=== PATIENT | female | born 2000 ===

== ENCOUNTER 2023-04-15 05:07 | Emergency (ER) | payer OTHER, SELFPAY ==
[2023-04-15 05:19] VITALS: BP 114/80; PULSE 104; RESP 18; TEMP 36.6; O2SAT 97; BMI 38.4
--- NOTE | 2023-04-15 05:32 | ED.ALCOHOL ---
HPI - Alcohol General Chief Complaint: ETOH/Substance Use Stated Complaint: CRISIS,HEARING VOICES,ETOH USE PER EMS Time Seen by Provider: 04/15/23 05:28 Source: patient Mode of arrival: EMS Limitations: other (Aggressive behavior) History of Present Illness HPI narrative: 22-year-old male (female gender at ) who presents emergency department for evaluation of acute alcohol intoxication. According to nursing notes, the patient was intoxicated and was walking in the middle the street. The patient flagged down a police car and requested a ride home. Given his alcohol intoxication, he was brought to emergency department for evaluation. Almost immediately on arrival the patient became extremely aggressive, he was yelling at staff. He was using inappropriate language. He stated that he did not want any treatment any did not want any help. The patient did denies being suicidal or homicidal. He did admit to drinking alcohol and was able to understand the consequences of refusing care despite being intoxicated. The patient became extremely agitated and was fixated on one are security guards and used very threatening language as well as racially charge language. Related Data Allergies Allergy/AdvReac Type Severity Reaction Status Date / Time No Known Allergies Allergy Verified 04/15/23 05:19 Review of Systems Review of Systems: Yes all other systems are reviewed and are negative [facility] Social History Social History Advance Directives: No Advance Directives Information Provided: No Physical Exam ED Vital Signs: Vital Signs - 24 hr 04/15/23 05:19 Temperature 97.8 F Pulse Rate 104 H Respiratory Rate 18 Blood Pressure 114/80 Pulse Oximetry 97 Oxygen Delivery Method Room Air BMI result Body Mass Index 38.4 Vital signs were normal General: The patient was extremely aggressive, he was yelling, he was threatening staff with violence if we did not let him go, he also was fixated on 1 security systems installer and used very racially charge language when talking to this security systems installer. HEENT: Head is normal cephalic and atraumatic Neck: Supple Lungs: No respiratory distress Neuro: Patient is agitated, moves all extremities symmetrically, he has no difficulty walking Medical Decision Making Medical Decision Making MDM Narrative: 22-year-old male who presents emergency department for evaluation of acute alcohol intoxication. The patient denied suicidal or homicidal ideation. The patient to appear to be intoxicated however the patient was oriented to person and place and was competent understand the consequences of his actions despite being intoxicated, therefore the patient was discharged from the emergency department. I did tell the patient if he changed his mind, if he wanted help with his alcohol use disorder any other issues that he should return to the emergency department for re-evaluation Differential Diagnosis Differential diagnosis includes was not limited to alcohol intoxication, substance use disorder Discharge Plan Discharge Clinical Impression: Alcoholic intoxication, Aggressive behavior Patient Disposition: Home, Self-Care Additional Instructions: If you feel like you are going to hurt yourself or hurt anyone else, please call 911 and return to the emergency depart Continue taking medications as prescribed by your providers Follow-up with your doctor in 2 days. Please return to the emergency department if your symptoms get worse or if you develop any symptoms that are concerning to you. Interventions: ED Discharge Assessment Last Done: 04/15/23 05:47 Discharge Date/Time: 04/15/23 06:08
--- NOTE | 2023-04-15 05:37 | PC.NURSE ---
Pt became very agitated when asked to exchange engineer to hospital attire. Pt continues to yell and curse at Protective services staff. Dr. Harrington at bedside for evaluation. Pt able to walk in straight line, in nor acute distress. Ambulated out of department with Attending MD, primary RN, EDTA and protective services escort to front door of ED with verbal discharge instructions given and all personal belongings.
--- NOTE | 2023-04-15 05:59 | PC.NURSE ---
Pt back to ED entrance alleging that he had a red shirt on upon arrival, pt informed that he did not come in with a shirt on only a pair of black shorts, cell phone, wallet and pack of cigarettes. Pt adamantly denies that he came in shirtless and insists that I call the ambulance crew that brought him in to check. Called [facility] emergency number to inquire about pts red shirt. Dispatcher states they will get in touch with ambulance crew and get back to us.
--- NOTE | 2023-04-15 06:29 | PC.NURSE ---
[facility] emergency line called and states crew relayed that pt did not have a shirt on when they evaluated pt.
== END 2023-04-15 06:08 | disposition home or self-care (01) ==
PROVIDERS: Emergency Provider Emergency Medicine Emergency Medical Services
DX: F10.129 Alcohol abuse with intoxication, unspecified (principal); Y90.9 Presence of alcohol in blood, level not specified; R44.0 Auditory hallucinations; F91.9 Conduct disorder, unspecified
CPT/HCPCS: 99282

== ENCOUNTER 2023-04-28 02:52 | Emergency (ER) | payer OTHER, SELFPAY ==
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
[2023-04-28 03:05] VITALS: BP 144/80; PULSE 76; RESP 16; TEMP 36.3; O2SAT 100; BMI 38.4
--- OUTSIDE RECORDS SUMMARY | 2023-04-28 03:19 | XMS_ITS | Continuity of Care Document ---
Author Name Unknown Organization [facility] ter Address [address] [place] [id number]- Care Team Providers Care Printer'S Devil Name Role Phone Apollo REYES, Abdirahman Alfaro Primary Care Physician Encounter [facility] Date(s): 11/26/19 - 11/26/[address] [address]- [facility] Attending Physician: Rodrigo Rodney MD Allergies, Adverse Reactions, Alerts Substance Reaction Severity Status Dogs Active Dust Active Mold Active Pollen Active Immunizations Given and Recorded Vaccine Date Status Refusal Reason influenza virus vaccine, inactivated 06/11/19 Give n influenza virus vaccine, inactivated 1 09/18/17 Gi ludmila influenza virus vaccine, inactivated 2 08/02/16 Gi ludmila influenza virus vaccine, inactivated 3 08/01/15 Gi ludmila influenza virus vaccine, inactivated 4 07/29/14 Gi ludmila influenza virus vaccine, inactivated 5 07/23/13 Gi ludmila influenza virus vaccine, inactivated 6 07/03/11 Gi ludmila influenza virus vaccine, inactivated 7 05/31/10 Gi ludmila meningococcal group B vaccine 8 09/22/18 Given meningococcal group B vaccine 9 09/18/17 Given Meningococcal Conjugate Vaccine 10 09/18/17 Given Meningococcal Conjugate Vaccine 11 07/17/12 Given Human Papillomavirus Vaccine 12 01/26/13 Given Human Papillomavirus Vaccine 13 09/23/12 Given Human Papillomavirus Vaccine 14 07/17/12 Given tetanus/diphtheria/pertussis, acel(Tdap) 07/17/12 Given Influenza Virus Vaccine (oldterm) 07/17/12 Given Influenza Virus Vaccine (oldterm) 07/25/04 Given Hepatitis A Pediatric Vaccine 15 07/17/12 Given Hepatitis A Vaccine (oldterm) 16 05/31/10 Given influ virus vac, H1N1, inactive(oldterm) 17 09/10/09 Given influ virus vac, H1N1, inactive(oldterm) 18 08/04/09 Given Influenza Inactive (IM) (oldterm) 06/09/09 Given Influenza Inactive (IM) (oldterm) 07/03/08 Given Varicella Virus Vaccine 19 01/30/08 Given Varicella Virus Vaccine 01/21/02 Given Measles/Mumps/Rubella Virus Vaccine 08/20/05 Given Measles/Mumps/Rubella Virus Vaccine 03/05/02 Given Poliovirus Vaccine, Inactivated 08/20/05 Given Poliovirus Vaccine, Inactivated 06/30/02 Given Poliovirus Vaccine, Inactivated 03/31/01 Given Poliovirus Vaccine, Inactivated 01/28/01 Given Diphth/Pertussis,Acel/Tetanus (oldterm) 08/20/05 G iven Diphth/Pertussis,Acel/Tetanus (oldterm) 06/30/02 G iven Diphth/Pertussis,Acel/Tetanus (oldterm) 05/30/01 G iven Diphth/Pertussis,Acel/Tetanus (oldterm) 03/31/01 G iven Diphth/Pertussis,Acel/Tetanus (oldterm) 01/28/01 G iven Haemophilus B Conj Vaccine (oldterm) 03/05/02 Give n Haemophilus B Conj Vaccine (oldterm) 05/30/01 Give n Haemophilus B Conj Vaccine (oldterm) 03/31/01 Give n Haemophilus B Conj Vaccine (oldterm) 01/28/01 Give n Hepatitis B Vaccine (old term) 09/05/01 Given Hepatitis B Vaccine (old term) 00 Given Hepatitis B Vaccine (old term) 00 Given Prevnar (oldterm) 05/30/01 Given Prevnar (oldterm) 03/31/01 Given Prevnar (oldterm) 01/28/01 Given 1Result Comment: [09/18/2017] Ordered by PALMER Gaines 2Result Comment: [08/02/2016] Huma Drummond BEATER ENGINEER HELPER 3Result Comment: [08/01/2015] Huma Drummond 4Result Comment: [07/29/2014] ordered by Huma Drummond C.P.NLavonnePLavonne 5Result Comment: [07/23/2013] ordered by Randi Gaines 6Admin Note: private vis given screening questions negative 7Admin Note: VIS 05/17/09 Given 8Result Comment: [09/22/2018] PALMER Gaines 9Result Comment: [09/18/2017] Ordered by PALMER Gaines 10Result Comment: [09/18/2017] Ordered by PALMER Gaines 11Admin Note: VIS 11/03/07 Given 12Admin Note: VIS 11/08/2006 13Admin Note: VIS 11/08/06 GIVEN 14Admin Note: Gardasil VIS 11/26/06 Given 15Admin Note: VIS given 16Admin Note: Hep A VIS 03/21/06 17Admin Note: screening question negative 18Admin Note: screening questions negative 19Admin Note: varivax vis given 12/18/07 Medications Adderall XR 20 mg oral capsule, extended release 1 capsule = 20 mg, By Mouth, Daily in AM, for ADHD., # 30 capsule, 0 Refills, Maintenance, 11/26/2017:29:00 EST, Capsule, [facility] #[id number], 157, cm, 11/25/19 13:13:00 EST, Height, 70.8, kg, 11/25/19 13:13:00 EST, Dry Weight Start Date: 11/26/19 Stop Date: 12/26/19 Status: Ordered Effexor XR 150 mg oral capsule, extended release 150 mg, 1, capsule, By Mouth, Daily, # 30 capsule, Refills 2, Tot. Refills 2, Maintenance, 11/26/2016:38:00 EST, Route to Pharmacy Electronically, [facility] #[id number], 157, cm, 11/25/19 13:13:00 EST, Height, 70.8, kg, 11/25/19 13:13:00 EST, D... Start Date: 11/26/19 Stop Date: 02/24/20 Status: Ordered loratadine 10 mg oral tablet 10 mg, By Mouth, Daily, # 30 tablet, Refills 0, Tot. Refills 0, Maintenance, 11/09/19 16:52:00 EST,Route to Pharmacy Electronically, [facility] #[id number], 157, cm, 10/22/19 10:25:00 EST, Height, 71.5, kg, 10/22/19 10:25:00 EST, Dry Weight Start Date: 11/09/19 Status: Ordered ProAir HFA 90 mcg/inh inhalation aerosol with adapter 2, puffs, Inhalation, Every 4 hours, PRN, # 8.5 Gm, Refills 1, Tot. Refills 1, Maintenance, 06/10/19 14:42:48 EDT, Aerosol, Route to Pharmacy Electronically, [id number], [facility] #[id number] Start Date: 06/10/19 Status: Ordered Problem List Condition Effective Dates Status Health Status Inform ant Acute pulmonary embolism(Confirmed) Active ADHD(Confirmed) Active Depressive disorder(Confirmed) Active 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 Oppositional defiant disorder(Confirmed) Active PTSD - Post-traumatic stress disorder(Confirmed) Active Social History Social History Type Response Smoking Status Never smoker entered on: 11/07/17 Sex Female
--- OUTSIDE RECORDS SUMMARY | 2023-04-28 03:19 | XMS_ITS | Continuity of Care Document ---
Author Name Unknown Organization [facility] Address [address] [place] [address]- Care Team Providers Care Salvage Inspector Wood [employer] Name Role Phone Claudia REYES, Christ Castrejon Primary Care Physician Encounter [facility] Date(s): 03/20/23 - 03/27/23 [facility] [address] [place] [address]- Attending Physician: Christ Lennon MD Allergies, Adverse Reactions, Alerts Substance Reaction Severity Status Dogs Active Dust Active Mold Active Pollen Active Immunizations Given and Recorded Vaccine Date Status Refusal Reason [id number] 12y+ bivalent booster vax 1 11/08/22 Given influenza virus vaccine, inactivated 07/28/22 Ad rded influenza virus vaccine, inactivated 11/02/21 Ad rded influenza virus vaccine, inactivated 07/07/20 Ad rded influenza virus vaccine, inactivated 06/11/19 Give n influenza virus vaccine, inactivated 08/03/18 Ad rded influenza virus vaccine, inactivated 2 09/18/17 Gi ludmila influenza virus vaccine, inactivated 3 08/02/16 Gi ludmila influenza virus vaccine, inactivated 4 08/01/15 Gi ludmila influenza virus vaccine, inactivated 5 07/29/14 Gi ludmila influenza virus vaccine, inactivated 6 07/23/13 Gi ludmila influenza virus vaccine, inactivated 7 07/03/11 Gi ludmila influenza virus vaccine, inactivated 8 05/31/10 Gi ludmila tetanus/diphtheria/pertussis, acel(Tdap) 02/07/22 Given tetanus/diphtheria/pertussis, acel(Tdap) 07/17/12 Given SARS-CoV-2 (COVID-19) mRNA BNT-162b2 vac 11/02/21 Recorded SARS-CoV-2 (COVID-19) mRNA BNT-162b2 vac 02/03/21 Recorded SARS-CoV-2 (COVID-19) mRNA BNT-162b2 vac 01/12/21 Recorded meningococcal group B vaccine 9 09/22/18 Given meningococcal group B vaccine 10 09/18/17 Given Meningococcal Conjugate Vaccine 11 09/18/17 Given Meningococcal Conjugate Vaccine 12 07/17/12 Given Human Papillomavirus Vaccine 13 01/26/13 Given Human Papillomavirus Vaccine 14 09/23/12 Given Human Papillomavirus Vaccine 15 07/17/12 Given Influenza Virus Vaccine (oldterm) 07/17/12 Given Influenza Virus Vaccine (oldterm) 07/25/04 Given Hepatitis A Pediatric Vaccine 16 07/17/12 Given Hepatitis A Vaccine (oldterm) 17 05/31/10 Given influ virus vac, H1N1, inactive(oldterm) 18 09/10/09 Given influ virus vac, H1N1, inactive(oldterm) 19 08/04/09 Given Influenza Inactive (IM) (oldterm) 06/09/09 Given Influenza Inactive (IM) (oldterm) 07/03/08 Given Varicella Virus Vaccine 20 01/30/08 Given Varicella Virus Vaccine 01/21/02 Given [...] (oldterm) 03/31/01 Given Prevnar (oldterm) 01/28/01 Given 1Early/Late Reason: Early/Late Reason: Med Not Available 2Result Comment: [09/18/2017] Ordered by PALMER Gaines 3Result Comment: [08/02/2016] Huma Drummond NP 4Result Comment: [08/01/2015] Huma Drummond 5Result Comment: [07/29/2014] ordered by Huma Drummond C.P.NJennifer 6Result Comment: [07/23/2013] ordered by Huma Drummond C.P.NLavonnePLavonne 7Admin Note: private vis given screening questions negative 8Admin Note: VIS 05/17/09 Given 9Result Comment: [09/22/2018] PALMER Gaines 10Result Comment: [09/18/2017] Ordered by PALMER Gaines 11Result Comment: [09/18/2017] Ordered by PALMER Gaines 12Admin Note: VIS 11/03/07 Given 13Admin Note: VIS 11/08/2006 14Admin Note: VIS 11/08/06 GIVEN 15Admin Note: Gardasil VIS 11/26/06 Given 16Admin Note: VIS given 17Admin Note: Hep A VIS 03/21/06 18Admin Note: screening question negative 19Admin Note: screening questions negative 20Admin Note: varivax vis given 12/18/07 Medications Advair Diskus 100 mcg-50 mcg inhalation powder 1, puffs, Inhalation, 2 times a day, # 1 each, Refills 0, Tot. Refills 0, Maintenance, 03/27/23 15:44:00 EDT, Powder, Route to Pharmacy Electronically, [id number], [facility], 158, cm, 03/27/23 8:48:00 EDT, Kiran... Start Date: 03/27/23 Stop Date: 04/26/23 Status: Ordered bacitracin topical 500 u/gm ointment See Instructions, Topically 2 times a day, # 15 Gm, 0 Refills, Acute 04/04/23 9:00:00 EDT, 03/27/2315:26:00 EDT, Ointment, [facility], Partial fill upon patient request if the prescription is for a schedule II opioid drug., Topically 2... Start Date: 03/27/23 Stop Date: 04/04/23 Status: Ordered cholecalciferol 1000 intl units oral tablet 1 tablet = 25 mcg, By Mouth, Daily, # 30 tablet, 0 Refills, Maintenance, 11/12/22 9:56:00 EST, Tablet, [facility], Partial fill upon patient request if the prescription is for a schedule II opioid drug., 158, cm, 11/11/22 11:48:00 EST, H... Start Date: 11/12/22 Status: Ordered Claritin 10 mg oral tablet 10 mg, 1, tablet, By Mouth, Daily, # 30 tablet, Refills 2, Tot. Refills 2, Maintenance, 03/27/23 15:26:00 EDT, Route to Pharmacy Electronically, [facility], Partial fill upon patient request if the prescription is for a schedule II opioi... Start Date: 03/27/23 Stop Date: 06/25/23 Status: Ordered fluticasone 50 mcg/inh nasal spray 1 sprays = 50 mcg, Nares, Both, 2 times a day, # 16 Gm, 0 Refills, Maintenance, 03/27/23 15:26:00 EDT, Nasal [place], [facility], Partial fill upon patient request if the prescription is for a schedule II opioid drug., 1 sprays Nares, Both... Start Date: 03/27/23 Stop Date: 04/26/23 Status: Ordered venlafaxine 37.5 mg oral capsule, extended release 37.5 mg, 1, capsule, By Mouth, Daily in AM, # 30 capsule, Refills 0, Tot. Refills 0, Maintenance, 03/27/23 15:26:00 EDT, Route to Pharmacy Electronically, [facility], Partial fill upon patient request if the prescription is for a schedul... Start Date: 03/27/23 Stop Date: 04/26/23 Status: Ordered Ventolin HFA 108 mcg/inh inhalation aerosol with adapter 1 puffs, Inhalation, Every 4 hours, PRN for wheezing, # 8 Gm, 0 Refills, Maintenance, 03/27/23 15:45:00 EDT, Aerosol, [facility], Partial fill upon patient request if the prescription is for a schedule II opioid drug., 158, cm, 03/27/23... Start Date: 03/27/23 Status: Ordered Problem List Condition Confirmation Course Effective Dates Status Health St atus Informant Acute pulmonary embolism Confirmed Active ADHD Confirmed Active Depressive disorder Confirmed Active Gender dysphoria in pediatric patient Confirmed Active Moderate persistent asthma with allergic rhinitis Confirmed Active Cigarette nicotine dependence Confirmed Active Oppositional defiant disorder Confirmed Active PTSD - Post-traumatic stress disorder Confirmed Active Severe obesity (BMI 35.0-39.9) with comorbidity Confirmed Active Social History Social History Type Response Smoking Status 5-9 cigarettes (betw een 1/4 to 1/2 pack)/day in last 30 days; Interested in cessation: No; Patient wants NRT during admission Yes; Type: Cigarettes entered on: 11/07/22 Sex Female Patient Care team information Care Team Personnel Name: Codi Mora MD Position: [facility] ICICLE MACHINE OPERATOR MD Member Role: Lifetime Consulting Physician Address: Address: [address] [place] [address], [address] Name: Nena Angela NP Position: [facility] Associate Professional Member Role: Lifetime Consulting Provider Address: Address: [address] [place] [address] [address] Name: Christ Taylor MD Position: [facility] Physician - Pediatrics Member Role: PCP Address: Address: [address] [place] [address] [address] Services [address] Name: Mili Albert RN Position: [facility] RN Member Role: Primary Care Nurse Name: Indira Gar RN Position: [facility] RN Member Role: Primary Care Nurse Name: Tricia Toledo Position: [facility] RN Member Role: Primary Care Nurse Name: Shanti Bustillos NP Position: [facility] PCO Associate Professional Member Role: Lifetime Consulting Provider Address: Address: [address] [place] [address] [place] [address]- Name: Huma Javier RN Position: [facility] RN Member Role: Primary Care Nurse Care Team Related Persons Name: NAV MORALES Address: home [address], [id number] Name: NAV MORALES Address: [address] [place] [address] Name: JOÃO MORALES Address: home [address] [place] [address]
--- OUTSIDE RECORDS SUMMARY | 2023-04-28 03:19 | XMS_ITS | Continuity of Care Document ---
Author Name Unknown Organization [facility] Address [address] [place] [address]- Care Team Providers Care Applications Administrator Name Role Phone Claudia REYES, Christ Castrejon Primary Care Physician Encounter PSS Date(s): 10/13/20 - 10/20/[address] [facility] [address], [place] [address] Attending Physician: Not on Staff, Attending MD Allergies, Adverse Reactions, Alerts Substance Reaction [...] PALMER Gaines 2Result Comment: [08/02/2016] Huma Drummond REPAIR CAMERAMAN 3Result Comment: [08/01/2015] Huma Drummond 4Result Comment: [07/29/2014] ordered by Randi Gaines 5Result Comment: [07/23/2013] ordered by Randi Gaines [...] ADHD., # 30 capsule, 0 Refills, Maintenance, 07/21/2016:58:00 EDT, Capsule, [facility] #[id number], 157, cm, 12/03/19 11:32:00 EST, Height, 70.4, kg, 12/03/19 11:32:00 EST, Dry Weight Start Date: 07/21/20 Stop Date: 08/20/20 Status: Ordered Effexor XR 150 mg oral capsule, extended release 150 mg, 1, capsule, By Mouth, Daily, # 30 capsule, Refills 2, Tot. Refills 2, Maintenance, 01/18/2016:57:00 EDT, Route to Pharmacy Electronically, [facility] #[id number], 157, cm, 12/03/19 11:32:00 EST, Height, 70.4, kg, 12/03/19 11:32:00 EST, D... Start Date: 01/18/20 Stop Date: 04/17/20 Status: Ordered loratadine 10 mg oral tablet 10 mg, By Mouth, Daily, # 90 tablet, Refills 0, Tot. Refills 0, Maintenance, 03/02/20 14:00:00 EDT,Route to Pharmacy Electronically, [facility] #[id number], 157, cm, 12/03/19 11:32:00 EST, Height, 70.4, kg, 12/03/19 11:32:00 EST, Dry Weight Start Date: 03/02/20 Status: Ordered ProAir HFA 90 mcg/inh inhalation aerosol with adapter 2, puffs, Inhalation, Every 4 hours, PRN, # 8.5 Gm, Refills 1, Tot. Refills 1, Maintenance, 12/23/19 14:57:00 EDT, Aerosol, Route to Pharmacy Electronically, [id number], [facility] #[id number], 157, cm, 12/03/19 11:32:00... Start Date: 12/23/19 Status: Ordered traZODone 50 mg oral tablet 50 mg, 1, tablet, By Mouth, Daily at bedtime, # 30 tablet, Refills 1, Tot. Refills 1, Maintenance, 08/15/20 17:17:00 EST, Route to Pharmacy Electronically, [facility] #[id number], 157, cm, 12/03/19 11:32:00 EST, Height, 70.4, kg, 12/03/19 11:32:0... 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
--- OUTSIDE RECORDS SUMMARY | 2023-04-28 03:19 | XMS_ITS | Continuity of Care Document ---
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 Refills 2, Maintenance, 11/26/2016:38:00 EST, Route to Pharmacy Electronically, [facility] #[id number], 157, cm, 11/25/19 13:13:00 EST, Height, 70.8, kg, 11/25/19 13:13:00 EST, D... Start Date: 11/26/19 Stop Date: 02/24/20 Status: Ordered loratadine 10 mg oral tablet 10 mg, By Mouth, Daily, # 30 tablet, Refills 0, Tot. Refills 0, Maintenance, 12/23/19 14:56:00 EDT,Route to Pharmacy Electronically, [facility] #[id number], 157, cm, 12/03/19 11:32:00 EST, Height, 70.4, kg, 12/03/19 11:32:00 EST, Dry Weight Start Date: 12/23/19 Status: Ordered ProAir HFA 90 mcg/inh inhalation aerosol with adapter 2, puffs, Inhalation, Every 4 hours, PRN, # 8.5 Gm, Refills 1, Tot. Refills 1, Maintenance, 12/23/19 14:57:00 EDT, Aerosol, Route to Pharmacy Electronically, [id number], [facility] #[id number], 157, cm, 12/03/19 11:32:00... Start Date: 12/23/19 Status: Ordered Problem List Condition Effective Dates Status Health Status Inform ant Acute pulmonary embolism(Confirmed) Active ADHD(Confirmed) Active Depressive disorder(Confirmed) Active 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 Oppositional defiant disorder(Confirmed) Active PTSD - Post-traumatic stress disorder(Confirmed) Active Social History Social History Type Response Smoking Status Never smoker entered on: 11/07/17 Sex Female
--- OUTSIDE RECORDS SUMMARY | 2023-04-28 03:19 | XMS_ITS | Continuity of Care Document ---
Author Name Unknown Organization [facility] Address [address] [place] [address]- Care Team Providers Care Provider Service Representative Name Role Phone Abdirahman Bustillos MD Primary Care Physician [facility] 08[facility] - 10/16/[address] [address]- [facility] Discharge Disposition: A-D/C Home Attending Physician: Rodrigo Rodney MD Admitting Physician: Rodrigo Rdoney MD Referring Physician: Abdirahman Bustillos MD Allergies, Adverse Reactions, Alerts Substance Reaction [...] PALMER Gaines 2Result Comment: [08/02/2016] Huma Drummond DIRECTOR OPERATING ROOM 3Result Comment: [08/01/2015] Huma Drummond 4Result Comment: [07/29/2014] ordered by Randi Gaines 5Result Comment: [07/23/2013] ordered by Huma Drummond C.P.NJennifer 6Admin Note: private vis given screening questions [...] 19Admin Note: varivax vis given 12/18/07 Medications 1 cc syringe with 18 gauge needle, 1.5 inch 1 cc syringe with 18 gauge needle, 1.5 inch, See Instructions, # 10 units, Refills 4, Tot. Refills 4, Maintenance, use to draw up testosterone every 2 weeks, 08/08/18 11:12:50 EDT, Compound Start Date: 08/08/18 Status: Ordered 22 gauge needle 1.5 inch 22 gauge needle 1.5 inch, See Instructions, # 10 Doses, Refills 4, Tot. Refills 4, Maintenance, useto administer testosterone IM every 2 weeks, 08/08/18 11:12:42 EDT, Compound Start Date: 08/08/18 Status: Ordered Adderall XR 20 mg oral capsule, extended release 1 capsule = 20 mg, By Mouth, Daily in AM, for ADHD., # 30 capsule, 0 Refills, Maintenance, 198:38:06 EST, Capsule, 156, cm, 08/17/19 14:51:53 EST, Height, 73.4, kg, 08/17/19 14:51:53 EST, Dry Weight Start Date: 09/17/19 Stop Date: 10/17/19 Status: Ordered Effexor XR 150 mg oral capsule, extended release 150 mg, 1, capsule, By Mouth, Daily, # 30 capsule, Refills 2, Tot. Refills 2, Maintenance, 198:38:43 EST, Route to Pharmacy Electronically, [id number], [id number], 156, cm, 08/17/19 14:51:53 EST, Heigh... Start Date: 09/17/19 Stop Date: 12/16/19 Status: Ordered loratadine 10 mg oral tablet 10 mg, By Mouth, Daily, # 30 tablet, Refills 0, Tot. Refills 0, Maintenance, 09/11/19 17:16:02 EST,Route to Pharmacy Electronically, [id number], [facility] #[id number], 156, cm, 08/17/19 14:51:53 EST, Height, 73.4, kg,... Start Date: 09/11/19 Status: Ordered LORazepam 1 mg oral tablet See Instructions, 1/2 tablet by mouth daily as needed for severe anxiety/panic. May increase to 1 tablet as directed., # 14 tablet, 0 Refills, Maintenance, 09/17/19 8:35:20 EST, 156, cm, 08/17/19 14:51:53 EST, Height, 73.4, kg, 08/17/19 14:51:53 EST,... Start Date: 09/17/19 Status: Ordered Lupron Depot-Ped 30 mg/3 months intramuscular kit = 30 mg, Intramuscular, Every 3 months, # 1 kit, 3 Refills, Maintenance, 10/14/18 15:54:35 EST Start Date: 10/14/18 Status: Ordered montelukast 10 mg oral tablet 10 mg, 1, tablet, By Mouth, Daily, # 30 tablet, Refills 2, Tot. Refills 2, Maintenance, 03/31/19 12:40:47 EDT, Route to Pharmacy Electronically, [id number], [facility] [id number] Start Date: 03/31/19 Status: Ordered ProAir HFA 90 mcg/inh inhalation aerosol with adapter 2, puffs, Inhalation, Every 4 hours, PRN, # 8.5 Gm, Refills 1, Tot. Refills 1, Maintenance, 06/10/19 14:42:48 EDT, Aerosol, Route to Pharmacy Electronically, [id number], [id number] Start Date: 06/10/19 Status: Ordered rivaroxaban 10 mg oral tablet 1 tablet = 10 mg, By Mouth, Daily, Stop 20 mg rivaroxaban before starting 10 mg dose, # 35 tablet, 6 Refills, Maintenance, 02/17/19 14:43:49 EDT Start Date: 02/17/19 Stop Date: 10/20/19 Status: Ordered testosterone cypionate 200 mg/mL intramuscular solution See Instructions, 80 mg (0.4 mL) Intramuscular Every 14 days; please dispense enough for 1 month supply, # 2 Doses, 6 Refills, Maintenance, 08/08/18 11:26:30 EDT Start Date: 08/08/18 Status: Ordered Problem List Condition Effective Dates Status Health Status Inform ant Acute pulmonary embolism(Confirmed) Active ADHD(Confirmed) Active Depressive disorder(Confirmed) Active 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 Oppositional defiant disorder(Confirmed) Active PTSD - Post-traumatic stress disorder(Confirmed) Active Vital Signs Most recent to oldest [Reference Range]: 1 Height 156 cm (08/17/19 2:51 PM) Weight 73.4 kg (08/17/19 2:51 PM) Pulse Rate [55-90 bpm] 92 bpm *H* (08/17/19 2:51 PM) Body Mass Index [18.5-24.99] 30.16 *>HHI* (08/17/19 2:51 PM) Blood Pressure [71-110/30-71 mm Hg] 145/ 72mm Hg *H* (08/17/19 2:51 PM) Blood pressure sites Arm, left (08/17/19 2:51 PM) Dry Weight 73.4 kg (08/17/19 2:51 PM) Social History Social History Type Response Smoking Status Never smoker entered on: 11/07/17 Sex Female
--- OUTSIDE RECORDS SUMMARY | 2023-04-28 03:19 | XMS_ITS | Continuity of Care Document ---
Author Name Unknown Organization [facility] Address [address] [place] [address]- Care Team Providers Care Forestry Supervisor Name Role Phone Claudia REYES, Christ Castrejon Primary Care Physician [facility]counter [facility] Date[facility]s): 03/14/23 - 04/13/23 [facility] [address] [place] [id number] Attending Physician: Admtr, Ar8 Admitting Physician: Admtr, Ar8 Referring Physician: Admtr, Ar8 Allergies, Adverse Reactions, Alerts Substance Reaction Severity Status Dogs Active Dust Active Mold Active Pollen Active Immunizations Given and Recorded Vaccine Date Status Refusal Reason [id number] 12y+ bivalent booster vax 1 11/08/22 Given [...] PALMER Gaines 3Result Comment: [08/02/2016] Huma Drummond HEALTH INFORMATION MANAGER 4Result Comment: [08/01/2015] Huma Drummond 5Result Comment: [07/29/2014] ordered by Ledy GainesPLavonneNLavonnePLavonne 6Result Comment: [07/23/2013] ordered by Huma Drummond C.P.N.PLavonne 7Admin Note: private vis given screening questions negative 8Admin Note: VIS 05/17/09 Given 9Result Comment: [09/22/2018] PAMLER Gaines 10Result Comment: [09/18/2017] Ordered by PALMER [...] 15:44:00 EDT, Powder, Route to Pharmacy Electronically, [id number], [facility], 158, cm, 03/27/23 8:48:00 EDT, [place]... Start Date: 03/27/23 Stop Date: 04/26/23 Status: Ordered cholecalciferol 1000 intl units oral tablet 1 tablet = 25 mcg, By Mouth, Daily, # 30 tablet, 0 Refills, Maintenance, 11/12/22 9:56:00 EST, Tablet, [facility], Partial fill upon patient request if the prescription is for a schedule II opioid drug., 158, cm, 11/11/22 11:48:00 EST, H... Start Date: 11/12/22 Status: Ordered Claritin 10 mg oral tablet 10 mg, 1, tablet, By Mouth, Daily, # 30 tablet, Refills 2, Tot. Refills 2, Maintenance, 03/27/23 15:26:00 EDT, Route to Pharmacy Electronically, [facility], Partial fill upon patient request if the prescription is for a schedule II opioi... Start Date: 03/27/23 Stop Date: 06/25/23 Status: Ordered fluticasone 50 mcg/inh nasal spray 1 sprays = 50 mcg, Nares, Both, 2 times a day, # 16 Gm, 0 Refills, Maintenance, 03/27/23 15:26:00 EDT, Nasal [place], [facility], Partial fill upon patient request if the prescription is for a schedule II opioid drug., 1 sprays Nares, Both... Start Date: 03/27/23 Stop Date: 04/26/23 Status: Ordered venlafaxine 37.5 mg oral capsule, extended release 37.5 mg, 1, capsule, By Mouth, Daily in AM, # 30 capsule, Refills 0, Tot. Refills 0, Maintenance, 03/27/23 15:26:00 EDT, Route to Pharmacy Electronically, [facility], Partial fill upon patient request if the prescription is for a schedul... Start Date: 03/27/23 Stop Date: 04/26/23 Status: Ordered Ventolin HFA 108 mcg/inh inhalation aerosol with adapter 1 puffs, Inhalation, Every 4 hours, PRN for wheezing, # 8 Gm, 0 Refills, Maintenance, 03/27/23 15:45:00 EDT, Aerosol, [facility], Partial fill upon patient [...] Team Personnel Name: Codi Mora MD Position: [facility] GROUP TEACHER MD Member Role: Lifetime Consulting Physician Address: Address: [address] [place] [address], [facility] [facility] [address] Name: Nena Angela NP Position: [facility] PCO Associate Professional Member Role: Lifetime Consulting Provider Address: Address: [address] [place] [address] Name: Christ Taylor MD Position: [facility] Physician - Pediatrics Member Role: PCP Address: Address: [address] [place] [address] [facility] Services [address] Name: Mili Albert RN Position: [facility] RN Member Role: Primary Care Nurse Name: Indira Gar RN Position: [facility] RN Member Role: Primary Care Nurse Name: Tricia Toledo Position: [facility] RN Member Role: Primary Care Nurse Name: Shanti Bustillos NP Position: [facility] PCO Associate Professional Member Role: Lifetime Consulting Provider Address: Address: [address] [place] [address] [facility] [address] Name: Huma Javier RN Position: [facility] RN Member Role: Primary Care Nurse Care Team Related Persons Name: NAV MORALES Address: home [address] [place] [address], [id number] Name: NAV MORALES Address: home [address] [place] [id number] Name: JOÃO MORALES Address: home [address] [place] [address]
--- OUTSIDE RECORDS SUMMARY | 2023-04-28 03:19 | XMS_ITS | Continuity of Care Document ---
Author Name Unknown Organization [facility] Address [address] [place] [address]- Care Team Providers Care Boat Builder Name Role Phone Claudia REYES, Christ Castrejon Primary Care Physician Encounter [facility] Date(s): 06/07/22 - 06/14/22 [facility] [address], [place] [address] Attending Physician: Not on Staff, Attending MD Allergies, Adverse Reactions, Alerts Substance Reaction Severity Status Dogs Active Dust Active Mold Active Pollen Active Immunizations Given and Recorded Vaccine Date Status Refusal Reason tetanus/diphtheria/pertussis, acel(Tdap) 02/07/22 Given tetanus/diphtheria/pertussis, acel(Tdap) 07/17/12 Given influenza virus vaccine, inactivated 11/02/21 Ad rded influenza virus vaccine, inactivated 07/07/20 Ad rded influenza virus vaccine, inactivated 06/11/19 Give n influenza virus vaccine, inactivated 08/03/18 Ad rded influenza virus vaccine, inactivated 1 09/18/17 Gi ludmila influenza virus vaccine, inactivated 2 08/02/16 Gi ludmila influenza virus vaccine, inactivated 3 08/01/15 Gi ludmila influenza virus vaccine, inactivated 4 07/29/14 Gi ludmila influenza virus vaccine, inactivated 5 07/23/13 Gi ludmila influenza virus vaccine, inactivated 6 07/03/11 Gi ludmila influenza virus vaccine, inactivated 7 05/31/10 Gi ludmila SARS-CoV-2 (COVID-19) mRNA BNT-162b2 vac 11/02/21 Recorded SARS-CoV-2 (COVID-19) mRNA BNT-162b2 vac 02/03/21 Recorded SARS-CoV-2 (COVID-19) mRNA BNT-162b2 vac 01/12/21 Recorded meningococcal group B vaccine 8 09/22/18 Given meningococcal group B vaccine 9 09/18/17 Given Meningococcal Conjugate Vaccine 10 09/18/17 Given Meningococcal Conjugate Vaccine 11 07/17/12 Given Human Papillomavirus Vaccine 12 01/26/13 Given Human Papillomavirus Vaccine 13 09/23/12 Given Human Papillomavirus Vaccine 14 07/17/12 Given Influenza Virus Vaccine (oldterm) 07/17/12 [...] PALMER Gaines 2Result Comment: [08/02/2016] 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 Drummond SAP 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 3Result Comment: [08/01/2015] Huma Drummond 4Result Comment: [07/29/2014] ordered by Ledy GainesPLavonneNLavonnePLavonne 5Result Comment: [07/23/2013] ordered by Huma Drummond C.P.NLavonnePLavonne 6Admin Note: private vis given screening questions [...] 19Admin Note: varivax vis given 12/18/07 Medications Aerochamber See Instructions, # 1 each, Maintenance, for use with albuterol inhaler, 02/07/22 13:56:00 EDT, Compound, 156.5, cm, 02/07/22 13:23:00 EDT, Height, 80.1, kg, 02/07/22 13:23:00 EDT, Dry Weight Start Date: 02/07/22 Status: Ordered Claritin 10 mg oral tablet 10 mg, 1, tablet, By Mouth, Daily, # 30 tablet, Refills 2, Tot. Refills 2, Maintenance, 02/07/22 13:47:00 EDT, Route to Pharmacy Electronically, [facility] #[id number], Partial fill upon patientrequest if the prescription is for a schedule II op... Start Date: 02/07/22 Stop Date: 05/08/22 Status: Ordered Effexor XR 37.5 mg oral capsule, extended release See Instructions, 1 capsule By Mouth Daily for 1 week, then increase to 2 capsules by mouth daily.,# 60 capsule, Refills 1, Tot. Refills 1, Maintenance, 07/20/21 9:27:00 EDT, Instructions Replace Required Details, Route to Pharmacy Electronically, [place]... Start Date: 07/20/21 Status: Ordered Flovent HFA 220 mcg/inh inhalation aerosol 1 puffs, Inhalation, 2 times a day, # 1 each, 6 Refills, Maintenance, 02/07/22 13:56:00 EDT, Aerosol, [facility] #[id number], Partial fill upon patient request if the prescription is for a schedule II opioid drug., 156.5, cm, 02/07/22 13:23:00 ED... Start Date: 02/07/22 Stop Date: 09/05/22 Status: Ordered naproxen 250 mg oral tablet 250 mg, 1, tablet, By Mouth, Every 8 hours, # 9 tablet, Refills 0, Tot. Refills 0, Maintenance, 11/23/21 9:40:00 EST, Route to Pharmacy Electronically, [facility] #[id number], Partial fill upon patient request if the prescription is for a schedul... Start Date: 11/23/21 Status: Ordered naproxen 500 mg oral tablet 1 tablet = 500 mg, By Mouth, 2 times a day, for 14 days, # 28 tablet, 0 Refills, Acute 06/21/22 11:56:00 EDT, 06/07/22 11:56:00 EDT, Tablet, [facility] #[id number], Partial fill upon patient request if the prescription is for a schedule II opioid... Start Date: 06/07/22 Stop Date: 06/21/22 Status: Ordered ProAir HFA 90 mcg/inh inhalation aerosol with adapter 2, puffs, Inhalation, Every 4 hours, PRN, # 8.5 Gm, Refills 1, Tot. Refills 1, Maintenance, 02/07/22 13:56:00 EDT, Aerosol, Route to Pharmacy Electronically, [id number], [facility] #[id number], 156.5, cm, 02/07/22 13:23:... 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
--- OUTSIDE RECORDS SUMMARY | 2023-04-28 03:19 | XMS_ITS | Continuity of Care Document ---
Author Name Unknown Organization [facility] Address [address] [place] [address]- Care Team Providers Care Copping Machine Operator Name Role Phone Claudia REYES, Christ Castrejon Primary Care Physician [phone] Encounter [facility] Date(s): 02/07/22 - 04/06/22 [facility] [address] [place], [place] [address] Attending Physician: Not on Staff, Attending [...] PALMER Gaines 2Result Comment: [08/02/2016] Huma Drummond MOLD CLAMPER 3Result Comment: [08/01/2015] Huma Drummond 4Result Comment: [...] 02/07/22 13:47:00 EDT, Route to Pharmacy Electronically, [facility] #[id number], Partial fill upon patientrequest if the prescription [...] 6 Refills, Maintenance, 02/07/22 13:56:00 EDT, Aerosol, [facility] #[id number], Partial fill upon patient request if the prescription is for a schedule II opioid drug., 156.5, cm, 02/07/22 13:23:00 ED... Start Date: 02/07/22 Stop Date: 09/05/22 Status: Ordered naproxen 250 mg oral tablet 250 mg, 1, tablet, By Mouth, Every 8 hours, # 9 tablet, Refills 0, Tot. Refills 0, Maintenance, 11/23/21 9:40:00 EST, Route to Pharmacy Electronically, [facility] #[id number], Partial fill upon patient request if the prescription is for a schedul... Start Date: 11/23/21 Status: Ordered ProAir HFA 90 mcg/inh inhalation aerosol with adapter 2, puffs, Inhalation, Every 4 hours, PRN, # 8.5 Gm, Refills 1, Tot. Refills 1, Maintenance, 02/07/22 13:56:00 EDT, Aerosol, Route to Pharmacy Electronically, [id number], [facility] #[id number], 156.5, cm, 02/07/22 13:23:... Start Date: 02/07/22 [...]
--- OUTSIDE RECORDS SUMMARY | 2023-04-28 03:19 | XMS_ITS | Continuity of Care Document ---
Author Name Unknown Organization [facility] Address [address] [place] [address]- Care Team Providers Care Steamboat Pilot Name Role Phone Claudia REYES, Christ Castrejon Primary Care Physician [phone] Encounter [facility] Date(s): 07/05/21 - 07/12/21 [facility] [address], [place] [address] Attending Physician: Not on Staff, Attending MD Allergies, Adverse Reactions, Alerts Substance Reaction Severity Status Dogs Active Dust Active Mold Active Pollen Active Immunizations Given and Recorded Vaccine Date Status Refusal Reason SARS-CoV-2 (COVID-19) mRNA BNT-162b2 vac 01/12/21 Recorded influenza virus vaccine, inactivated 07/07/20 Ad rded [...] PALMER Gaines 2Result Comment: [08/02/2016] 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 3Result Comment: [08/01/2015] Huma Drummond 4Result Comment: [07/29/2014] ordered by Huma Drummond C.P.NJennifer 5Result Comment: [07/23/2013] ordered by Huma Drummond [...] capsule, 0 Refills, Maintenance, 07/21/2016:58:00 EDT, Capsule, [facility] #[id number], 157, cm, 12/03/19 11:32:00 EST, Height, 70.4, kg, 12/03/19 11:32:00 EST, Dry Weight Start Date: 07/21/20 Stop Date: 08/20/20 Status: Ordered Aerochamber See Instructions, # 1 each, Maintenance, for use with albuterol inhaler, 12/23/20 10:55:00 EDT, Compound, 157, cm, 12/03/19 11:32:00 EST, Height, 70.4, kg, 12/03/19 11:32:00 EST, Dry Weight Start Date: 12/23/20 Status: Ordered Effexor XR 150 mg oral capsule, extended release 150 mg, 1, capsule, By Mouth, Daily, # 30 capsule, Refills 2, Tot. Refills 2, Maintenance, 01/18/2016:57:00 EDT, Route to Pharmacy Electronically, [facility] #[id number], 157, cm, 12/03/19 11:32:00 EST, Height, 70.4, kg, 12/03/19 11:32:00 EST, D... Start Date: 01/18/20 Stop Date: 04/17/20 Status: Ordered famotidine 20 mg oral tablet 20 mg, 1, tablet, By Mouth, Daily, # 30 tablet, Refills 0, Tot. Refills 0, Soft Stop, 01/12/21 12:29:00 EDT, Route to Pharmacy Electronically, [facility] #[id number], Partial fill upon patient request if the prescription is for a schedule II opio... Start Date: 01/12/21 Stop Date: 02/11/21 Status: Ordered loratadine 10 mg oral tablet 10 mg, By Mouth, Daily, # 90 tablet, Refills 0, Tot. Refills 0, Maintenance, 03/02/20 14:00:00 EDT,Route to Pharmacy Electronically, [facility] #[id number], 157, cm, 12/03/19 11:32:00 EST, Height, 70.4, kg, 12/03/19 11:32:00 EST, Dry Weight Start Date: 03/02/20 Status: Ordered ProAir HFA 90 mcg/inh inhalation aerosol with adapter 2, puffs, Inhalation, Every 4 hours, PRN, # 8.5 Gm, Refills 1, Tot. Refills 1, Maintenance, 12/23/20 10:56:00 EDT, Aerosol, Route to Pharmacy Electronically, [id number], [facility] #[id number], 157, cm, 12/03/19 11:32:00... Start Date: 12/23/20 Status: Ordered traZODone 50 mg oral tablet 50 mg, 1, tablet, By Mouth, Daily at bedtime, # 30 tablet, Refills 1, Tot. Refills 1, Maintenance, 08/15/20 17:17:00 EST, Route to Pharmacy Electronically, [facility] #[id number], 157, cm, 12/03/19 11:32:00 EST, Height, 70.4, [...]
--- OUTSIDE RECORDS SUMMARY | 2023-04-28 03:19 | XMS_ITS | Continuity of Care Document ---
Author Name Unknown Organization [facility] Address [address] [place] [address]- Care Team Providers Care Evp Sales Name Role Phone Apollo REYES, Abdirahman Alfaro Primary Care Physician [facility] Date[facility]s): 11/[facility] - 11/26/[address] [address]- 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 Refills 2, Maintenance, 11/26/2016:38:00 EST, Route to Pharmacy Electronically, [facility] #[id number], 157, cm, 11/25/19 13:13:00 EST, Height, 70.8, kg, 11/25/19 13:13:00 EST, D... Start Date: 11/26/19 Stop Date: 02/24/20 Status: Ordered loratadine 10 mg oral tablet 10 mg, By Mouth, Daily, # 30 tablet, Refills 0, Tot. Refills 0, Maintenance, 11/09/19 16:52:00 EST,Route to Pharmacy Electronically, [facility] #[id number], 157, cm, 10/22/19 10:25:00 EST, Height, 71.5, kg, 10/22/19 10:25:00 EST, Dry Weight Start Date: 11/09/19 Status: Ordered ProAir HFA 90 mcg/inh inhalation aerosol with adapter 2, puffs, Inhalation, Every 4 hours, PRN, # 8.5 Gm, Refills 1, Tot. 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
--- OUTSIDE RECORDS SUMMARY | 2023-04-28 03:20 | XMS_ITS | Continuity of Care Document ---
Author Name Unknown Organization [facility] Address [address] [place] [address]- Care Team Providers Care Firer Automatic Stoker Name Role Phone Claudia REYES, Christ Castrejon Primary Care Physician Encounter [facility] Date(s): 09/06/21 - 09/13/21 [facility] [address] [place], [place] [address] Attending Physician: Not on Staff, Attending [...] PALMER Gaines 2Result Comment: [08/02/2016] Huma Drummond RESOLUTION MANAGER 3Result Comment: [08/01/2015] Huma Drummond 4Result Comment: [...] capsule, 0 Refills, Maintenance, 07/21/2016:58:00 EDT, Capsule, [facility] #[id number], 157, cm, 12/03/19 11:32:00 EST, Height, 70.4, kg, 12/03/19 11:32:00 EST, Dry Weight Start Date: 07/21/20 Stop Date: 08/20/20 Status: Ordered Aerochamber See Instructions, # 1 each, Maintenance, for use with albuterol inhaler, 12/23/20 10:55:00 EDT, Compound, 157, cm, 12/03/19 11:32:00 EST, Height, 70.4, kg, 12/03/19 11:32:00 EST, Dry Weight Start Date: 12/23/20 Status: Ordered Effexor XR 37.5 mg oral capsule, extended release See Instructions, 1 capsule By Mouth Daily for 1 week, then increase to 2 capsules by mouth daily.,# 60 capsule, Refills 1, Tot. Refills 1, Maintenance, 07/20/21 9:27:00 EDT, Instructions Replace Required Details, Route to Pharmacy Electronically, [place]... Start Date: 07/20/21 Status: Ordered famotidine 20 mg oral tablet 20 mg, 1, tablet, By Mouth, Daily, # 30 tablet, Refills 0, Tot. Refills 0, Soft Stop, 01/12/21 12:29:00 EDT, Route to Pharmacy Electronically, [facility] #[id number], Partial fill upon patient request if the prescription is for a schedule II opio... Start Date: 01/12/21 Stop Date: 02/11/21 Status: Ordered ProAir HFA 90 mcg/inh inhalation aerosol with adapter 2, puffs, Inhalation, Every 4 hours, PRN, # 8.5 Gm, Refills 1, Tot. Refills 1, Maintenance, 12/23/20 10:56:00 EDT, Aerosol, Route to Pharmacy Electronically, [id number], [facility] #[id number], 157, cm, 12/03/19 11:32:00... Start Date: 12/23/20 Status: Ordered Problem List Condition Effective Dates [...]
--- OUTSIDE RECORDS SUMMARY | 2023-04-28 03:20 | XMS_ITS | Continuity of Care Document ---
Author Name Unknown Organization [facility] Address [address] [place] [address]- Care Team Providers Care Machinist Automotive Name Role Phone Claudia REYES, Christ Castrejon Primary Care Physician Encounter [facility] Date(s): 01/12/21 - 01/19/21 [facility] [address], [place] [address] Attending Physician: Huma Mcbride Allergies, Adverse Reactions, [...] PALMER Gaines 2Result Comment: [08/02/2016] Huma Drummond MOTOR BUILDER ASSEMBLER 3Result Comment: [08/01/2015] Huma Drummond 4Result Comment: [...] capsule, 0 Refills, Maintenance, 07/21/2016:58:00 EDT, Capsule, [facility] #[id number], 157, cm, 12/03/19 11:32:00 EST, Height, 70.4, [...] Maintenance, 01/18/2016:57:00 EDT, Route to Pharmacy Electronically, [facility] #[id number], 157, cm, 12/03/19 11:32:00 EST, Height, 70.4, kg, 12/03/19 11:32:00 EST, D... Start Date: 01/18/20 Stop Date: 04/17/20 Status: Ordered famotidine 20 mg oral tablet 20 mg, 1, tablet, By Mouth, Daily, # 30 tablet, Refills 0, Tot. Refills 0, Soft Stop, 01/12/21 12:29:00 EDT, Route to Pharmacy Electronically, [facility] #[id number], Partial fill upon patient request if the prescription is for a schedule II opio... Start Date: 01/12/21 Stop Date: 02/11/21 Status: Ordered loratadine 10 mg oral tablet 10 mg, By Mouth, Daily, # 90 tablet, Refills 0, Tot. Refills 0, Maintenance, 03/02/20 14:00:00 EDT,Route to Pharmacy Electronically, [facility] #[id number], 157, cm, 12/03/19 11:32:00 EST, Height, 70.4, kg, 12/03/19 11:32:00 EST, Dry Weight Start Date: 03/02/20 Status: Ordered ProAir HFA 90 mcg/inh inhalation aerosol with adapter 2, puffs, Inhalation, Every 4 hours, PRN, # 8.5 Gm, Refills 1, Tot. Refills 1, Maintenance, 12/23/20 10:56:00 EDT, Aerosol, Route to Pharmacy Electronically, [id number], [facility] #[id number], 157, cm, 12/03/19 11:32:00... Start Date: 12/23/20 Status: Ordered traZODone 50 mg oral tablet 50 mg, 1, tablet, By Mouth, Daily at bedtime, # 30 tablet, Refills 1, Tot. Refills 1, Maintenance, 08/15/20 17:17:00 EST, Route to Pharmacy Electronically, [facility] #[id number], 157, cm, 12/03/19 11:32:00 EST, Height, 70.4, [...] recent to oldest [Reference Range]: 1 Height 151.2 cm (01/12/21 11:59 AM) Weight 68.6 kg (01/12/21 11:59 AM) Pulse Rate [55-90 bpm] 92 bpm *H* (01/12/21 11:59 AM) Body Mass Index [18.5-24.99] 30.01 *>HHI* (01/12/21 11:59 AM) Blood Pressure [90-138/55-84 mm Hg] 124/ 60mm Hg (01/12/21 11:59 AM) Blood pressure sites Arm, left (01/12/21 11:59 AM) Dry Weight 68.6 kg (01/12/21 11:59 AM) Weight Obtained Via Standing scale (01/12/21 11:59 AM) Dry Weight Obtained Via Standing scale (01/12/21 11:59 AM) Social History Social History Type Response Smoking Status Never smoker entered on: 11/07/17 Sex Female
--- OUTSIDE RECORDS SUMMARY | 2023-04-28 03:20 | XMS_ITS | Continuity of Care Document ---
Author Name Unknown Organization [facility] Address [address] [place] [address]- Care Team Providers Care Sketch Artist Name Role Phone Claudia REYES, Christ Castrejon Primary Care Physician [phone] [facility](s): 12/03/19 - 12/13/19 [facility] [address] [place] [address]- [facility] Attending Physician: Steve Alvarez Admitting Physician: Steve Alvarez Referring Physician: AdmtrSteve Allergies, Adverse Reactions, Alerts Substance Reaction Severity [...] PALMER Gaines 2Result Comment: [08/02/2016] Huma Drummond 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 Refills 2, Maintenance, 11/26/2016:38:00 EST, Route to Pharmacy Electronically, [facility] #[id number], 157, cm, 11/25/19 13:13:00 EST, Height, 70.8, kg, 11/25/19 13:13:00 EST, D... Start Date: 11/26/19 Stop Date: 02/24/20 Status: Ordered loratadine 10 mg oral tablet 10 mg, By Mouth, Daily, # 30 tablet, Refills 0, Tot. Refills 0, Maintenance, 11/09/19 16:52:00 EST,Route to Pharmacy Electronically, [facility] #[id number], 157, cm, 10/22/19 10:25:00 EST, Height, 71.5, kg, 10/22/19 10:25:00 EST, Dry Weight Start Date: 11/09/19 Status: Ordered ProAir HFA 90 mcg/inh inhalation aerosol with adapter 2, puffs, Inhalation, Every 4 hours, PRN, # 8.5 Gm, Refills 1, Tot. 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
--- OUTSIDE RECORDS SUMMARY | 2023-04-28 03:20 | XMS_ITS | Continuity of Care Document ---
Author Name Unknown Organization [facility] Address [address] [place] [address]- Care Team Providers Care Broadloom Weaver Name Role Phone Apollo REYES, Abdirahman Alfaro Primary Care Physician [phone] Encounter [facility] Date(s): 10/16/19 - 10/26/19 [facility] [address] [place] [address]- [facility] Attending Physician: AdmSteve fish Admitting Physician: AdmtrSteve Referring Physician: Admtr, Ar8 Allergies, Adverse Reactions, [...] Gaines 2Result Comment: [08/02/2016] Huma Drummond DIRECTOR OF WOMEN'S SERVICES 3Result Comment: [08/01/2015] Huma Drummond 4Result Comment: [07/29/2014] ordered by Huma Drummond C.P.NJennifer 5Result Comment: [07/23/2013] ordered by Huma Drummond C.P.NJennifer 6Admin Note: private vis given screening questions negative 7Admin Note: VIS 05/17/09 Given 8Result Comment: [09/22/2018] PALMER Gaines 9Result Comment: [09/18/2017] Ordered by PALMER Gaiens 10Result Comment: [09/18/2017] Ordered by PALMER Gaines [...] ADHD., # 30 capsule, 0 Refills, Maintenance, 10/19/2012:28:00 EST, Capsule, Dry Weight Start Date: 10/19/19 Stop Date: 11/18/19 Status: Ordered Effexor XR 150 mg oral capsule, extended release 150 mg, 1, capsule, By Mouth, Daily, # 30 capsule, Refills 2, Tot. Refills 2, Maintenance, 198:38:43 EST, Route to Pharmacy Electronically, [id number], [facility][id number], 156, cm, 08/17/19 14:51:53 EST, Heigh... Start Date: 09/17/19 Stop Date: 12/16/19 Status: Ordered loratadine 10 mg oral tablet 10 mg, By Mouth, Daily, # 30 tablet, Refills 0, Tot. Refills 0, Maintenance, 09/11/19 17:16:02 EST,Route to Pharmacy Electronically, [id number], [facility] #[id number], 156, cm, 08/17/19 14:51:53 EST, Height, 73.4, kg,... Start Date: 09/11/19 Status: Ordered LORazepam 1 mg oral tablet See Instructions, 1/2 tablet by mouth daily as needed for severe anxiety/panic. May increase to 1 tablet as directed., # 14 tablet, 0 Refills, Maintenance, 09/17/19 8:35:20 EST, 156, cm, 08/17/19 14:51:53 EST, Height, 73.4, kg, 08/17/19 14:51:53 EST,... Start Date: 09/17/19 Status: Ordered montelukast 10 mg oral tablet 10 mg, 1, tablet, By Mouth, Daily, # 30 tablet, Refills 2, Tot. Refills 2, Maintenance, 03/31/19 12:40:47 EDT, Route to Pharmacy Electronically, [id number], [facility] [id number] Start Date: 03/31/19 Status: Ordered ProAir HFA 90 mcg/inh inhalation aerosol with adapter 2, puffs, Inhalation, Every 4 hours, PRN, # 8.5 Gm, Refills 1, Tot. Refills 1, Maintenance, 06/10/19 14:42:48 EDT, Aerosol, Route to Pharmacy Electronically, [id number], [facility] #[id number] Start Date: 06/10/19 Status: Ordered rivaroxaban 10 [...]
--- OUTSIDE RECORDS SUMMARY | 2023-04-28 03:20 | XMS_ITS | Continuity of Care Document ---
Author Name Unknown Organization [facility] Address [address] [place] [address]- Care Team Providers Care Heading Saw Operator Name Role Phone Claudia REYES, Christ Castrejon Primary Care Physician Encounter [facility] Date(s): 02/01/21 - 02/08/21 [facility] [address], [place] [address] Attending Physician: Not on Staff, [...] PALMER Gaines 2Result Comment: [08/02/2016] Huma Drummond SUPPORT MERCHANDISER 3Result Comment: [08/01/2015] Huma Drummond 4Result Comment: [...] capsule, 0 Refills, Maintenance, 07/21/2016:58:00 EDT, Capsule, [facility] #[id number], 157, cm, 12/03/19 11:32:00 EST, Height, 70.4, [...] Maintenance, 01/18/2016:57:00 EDT, Route to Pharmacy Electronically, [facility] #[id number], 157, cm, 12/03/19 11:32:00 EST, Height, 70.4, kg, 12/03/19 11:32:00 EST, D... Start Date: 01/18/20 Stop Date: 04/17/20 Status: Ordered famotidine 20 mg oral tablet 20 mg, 1, tablet, By Mouth, Daily, # 30 tablet, Refills 0, Tot. Refills 0, Soft Stop, 01/12/21 12:29:00 EDT, Route to Pharmacy Electronically, [facility] #[id number], Partial fill upon patient request if the prescription is for a schedule II opio... Start Date: 01/12/21 Stop Date: 02/11/21 Status: Ordered loratadine 10 mg oral tablet 10 mg, By Mouth, Daily, # 90 tablet, Refills 0, Tot. Refills 0, Maintenance, 03/02/20 14:00:00 EDT,Route to Pharmacy Electronically, [facility] #[id number], 157, cm, 12/03/19 11:32:00 EST, Height, 70.4, kg, 12/03/19 11:32:00 EST, Dry Weight Start Date: 03/02/20 Status: Ordered ProAir HFA 90 mcg/inh inhalation aerosol with adapter 2, puffs, Inhalation, Every 4 hours, PRN, # 8.5 Gm, Refills 1, Tot. Refills 1, Maintenance, 12/23/20 10:56:00 EDT, Aerosol, Route to Pharmacy Electronically, [id number], [facility] #[id number], 157, cm, 12/03/19 11:32:00... Start Date: 12/23/20 Status: Ordered traZODone 50 mg oral tablet 50 mg, 1, tablet, By Mouth, Daily at bedtime, # 30 tablet, Refills 1, Tot. Refills 1, Maintenance, 08/15/20 17:17:00 EST, Route to Pharmacy Electronically, [facility] #[id number], 157, cm, 12/03/19 11:32:00 EST, Height, 70.4, kg, 12/03/19 11:32:0... 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
--- OUTSIDE RECORDS SUMMARY | 2023-04-28 03:20 | XMS_ITS | Continuity of Care Document ---
Author Name Unknown Organization [facility] Address [address] [place] [address]- Care Team Providers Care Building Maintenance Superintendent Name Role Phone Claudia REYES, Christ Castrejon Primary Care Physician [phone] Encounter [facility] Date(s): 03/15/22 - 03/22/22 [facility] [address] [place], [place] [address] Attending Physician: Not on Staff, Attending MD Allergies, Adverse Reactions, Alerts Substance Reaction Severity Status Dogs Active Dust Active Pollen Active Mold Active Immunizations Given and Recorded Vaccine Date [...] Gaines 2Result Comment: [08/02/2016] Huma Drummond REPAIR DEPARTMENT MANAGER 3Result Comment: [08/01/2015] Huma Drummond 4Result [...] 02/07/22 13:47:00 EDT, Route to Pharmacy Electronically, [facility] #[id number], Partial fill upon patientrequest if the prescription [...] 6 Refills, Maintenance, 02/07/22 13:56:00 EDT, Aerosol, [facility] #[id number], Partial fill upon patient request if the prescription is for a schedule II opioid drug., 156.5, cm, 02/07/22 13:23:00 ED... Start Date: 02/07/22 Stop Date: 09/05/22 Status: Ordered naproxen 250 mg oral tablet 250 mg, 1, tablet, By Mouth, Every 8 hours, # 9 tablet, Refills 0, Tot. Refills 0, Maintenance, 11/23/21 9:40:00 EST, Route to Pharmacy Electronically, [facility] #[id number], Partial fill upon patient request if the prescription is for a schedul... Start Date: 11/23/21 Status: Ordered ProAir HFA 90 mcg/inh inhalation aerosol with adapter 2, puffs, Inhalation, Every 4 hours, PRN, # 8.5 Gm, Refills 1, Tot. Refills 1, Maintenance, 02/07/22 13:56:00 EDT, Aerosol, Route to Pharmacy Electronically, [id number], [facility] #[id number], 156.5, cm, 02/07/22 13:23:... 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 Obese class I(Confirmed) Active Oppositional defiant disorder(Confirmed) Active PTSD - Post-traumatic stress disorder(Confirmed) Active Vital Signs Most recent to oldest [Reference Range]: 1 Height 157.5 cm (03/15/22 11:17 AM) Weight 80.7 kg (03/15/22 11:17 AM) Pulse Rate [55-90 bpm] 70 bpm (03/15/22 11:17 AM) Body Mass Index [18.5-24.99] 32.53 *>HHI* (03/15/22 11:17 AM) Blood Pressure [90-138/55-84 mm Hg] 118/ 78mm Hg (03/15/22 11:17 AM) Respiratory Rate [16-30 br/min] 18 br/mi n (03/15/22 11:17 AM) Temperature [96.8-100.4 DegF] 97.6 DegF (03/15/22 11:17 AM) Blood pressure sites Arm, left (03/15/22 11:17 AM) Dry Weight 80.7 kg (03/15/22 11:17 AM) Weight Obtained Via Standing scale (03/15/22 11:17 AM) Dry Weight Obtained Via Standing scale (03/15/22 11:17 AM) Social History Social History Type Response Smoking Status Never smoker entered on: 11/07/17 Sex Female
--- OUTSIDE RECORDS SUMMARY | 2023-04-28 03:20 | XMS_ITS | Continuity of Care Document ---
Author Name Unknown Organization [facility] Address [address] [place] [address]- Care Team Providers Care Car Wiper Name Role Phone Apollo REYES, Abdirahman Alfaro Primary Care Physician [phone] Encounter [facility] Date(s): 10/22/19 - 11/01/19 [facility] [address] [place] [address]- [facility] Attending Physician: AdmBuzz fish8 Admitting Physician: Admtr, Steve Referring Physician: Admtr, Ar8 Allergies, Adverse Reactions, [...] PALMER Gaines 2Result Comment: [08/02/2016] Huma Drummond IMMUNOCHEMIST 3Result Comment: [08/01/2015] Huma Drummond 4Result Comment: [...] capsule, Refills 2, Tot. Refills 2, Maintenance, :38:43 EST, Route to Pharmacy Electronically, [id number], [id number], 156, cm, 08/17/19 14:51:53 EST, Heigh... Start Date: 09/17/19 Stop Date: 12/16/19 Status: Ordered loratadine 10 mg oral tablet 10 mg, By Mouth, Daily, # 30 tablet, Refills 0, Tot. Refills 0, Maintenance, 09/11/19 17:16:02 EST,Route to Pharmacy Electronically, [id number], [facility] #[id number], 156, cm, 08/17/19 14:51:53 EST, Height, 73.4, [...] 03/31/19 12:40:47 EDT, Route to Pharmacy Electronically, [id number], [facility] [id number] Start Date: 03/31/19 Status: Ordered ProAir HFA 90 mcg/inh inhalation aerosol with adapter 2, puffs, Inhalation, Every 4 hours, PRN, # 8.5 Gm, Refills 1, Tot. 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
--- OUTSIDE RECORDS SUMMARY | 2023-04-28 03:20 | XMS_ITS | Continuity of Care Document ---
Author Name Unknown Organization [facility] Address [address] [place] [address]- Care Team Providers Care Radio Machinist Name Role Phone Claudia REYES, Christ Castrejon Primary Care Physician [phone] [place] [facility] [place]s): 01/23/23 - 04/13/23 [facility] [address] [place] [address] [[email or web address]] Attending Physician: Rosa Patel MD Admitting Physician: Rosa Patel MD Referring Physician: Huma Mcbride Allergies, Adverse Reactions, Alerts Substance Reaction Severity Status Dogs Active Dust Active Mold Active Pollen Active Immunizations Given and Recorded Vaccine Date Status Refusal Reason [id number] 12y+ bivalent booster vax 1 11/08/22 Given [...] PALMER Gaines 3Result Comment: [08/02/2016] Huma Drummond WAREHOUSE PRICING AND INVENTORY CLERK 4Result Comment: [08/01/2015] Huma Drummond 5Result Comment: [07/29/2014] ordered by Huma Drummond C.P.NLavonnePLavonne 6Result Comment: [07/23/2013] ordered by Huma Drummond [...] 15:44:00 EDT, Powder, Route to Pharmacy Electronically, [id number], [facility], 158, cm, 03/27/23 8:48:00 EDT, Heig... Start Date: 03/27/23 Stop Date: 04/26/23 Status: Ordered cholecalciferol 1000 intl units oral tablet 1 tablet = 25 mcg, By Mouth, Daily, # 30 tablet, 0 Refills, Maintenance, 11/12/22 9:56:00 EST, Tablet, [facility], Partial fill upon patient request if the prescription is for a schedule II opioid drug., 158, cm, 11/11/22 11:48:00 EST, H... Start Date: 11/12/22 Status: Ordered Claritin 10 mg oral tablet 10 mg, 1, tablet, By Mouth, Daily, # 30 tablet, Refills 2, Tot. Refills 2, Maintenance, 03/27/23 15:26:00 EDT, Route to Pharmacy Electronically, [facility], Partial fill upon patient request if the prescription is for a schedule II opioi... Start Date: 03/27/23 Stop Date: 06/25/23 Status: Ordered fluticasone 50 mcg/inh nasal spray 1 sprays = 50 mcg, Nares, Both, 2 times a day, # 16 Gm, 0 Refills, Maintenance, 03/27/23 15:26:00 EDT, Nasal [place], [facility], Partial fill upon patient request if the prescription is for a schedule II opioid drug., 1 sprays Nares, Both... Start Date: 03/27/23 Stop Date: 04/26/23 Status: Ordered venlafaxine 37.5 mg oral capsule, extended release 37.5 mg, 1, capsule, By Mouth, Daily in AM, # 30 capsule, Refills 0, Tot. Refills 0, Maintenance, 03/27/23 15:26:00 EDT, Route to Pharmacy Electronically, [facility], Partial fill upon patient request if the prescription is for a schedul... Start Date: 03/27/23 Stop Date: 04/26/23 Status: Ordered Ventolin HFA 108 mcg/inh inhalation aerosol with adapter 1 puffs, Inhalation, Every 4 hours, PRN for wheezing, # 8 Gm, 0 Refills, Maintenance, 03/27/23 15:45:00 EDT, Aerosol, [facility], Partial fill upon patient [...] Team Personnel Name: Codi Mora MD Position: [facility] CHEESE PANCAKE ROLLER MD Member Role: Lifetime Consulting Physician Address: Address: [address] [place] [address], [facility] [address] Name: Nena Angela NP Position: [facility] PCO Associate Professional Member Role: Lifetime Consulting Provider Address: Address: [address] [place] [address] Name: Christ Taylor MD Position: [facility] Physician - Pediatrics Member Role: PCP Address: Address: [address] [place] [address] Pediatric Services [address] Name: Mili Albert RN Position: [facility] RN Member Role: Primary Care Nurse Name: Indira Gar RN Position: [facility] RN Member Role: Primary Care Nurse Name: Tricia Toledo Position: [facility] RN Member Role: Primary Care Nurse Name: Shanti Bustillos NP Position: [facility] PCO Associate Professional Member Role: Lifetime Consulting Provider Address: Address: [address] [place] [address] Name: Huma Javier RN Position: [facility] RN Member Role: Primary Care Nurse Care Team Related Persons Name: NAV MORALES Address: home [address] [place] [address], [phone] Name: NAV MORALES Address: home [address] [place] [address] Name: JOÃO MORALES Address: home [address] [place] [address]
--- OUTSIDE RECORDS SUMMARY | 2023-04-28 03:20 | XMS_ITS | Continuity of Care Document ---
Author Name Unknown Organization [facility] Address [address] [place] [address]- Care Team Providers Care Powder Core Tester Name Role Phone Claudia REYES, Christ Castrejon Primary Care Physician Encounter 11/23/21 - 12/23/21 [facility] [address] [place] [address]- Allergies, Adverse Reactions, Alerts Substance Reaction Severity [...] PALMER Gaines 2Result Comment: [08/02/2016] Huma Drummond PLATFORM MAN 3Result Comment: [08/01/2015] Huma Drummond 4Result Comment: [07/29/2014] ordered by Ranid Gaines 5Result Comment: [07/23/2013] ordered by Randi [...] capsule, 0 Refills, Maintenance, 07/21/2016:58:00 EDT, Capsule, [facility] #[id number], 157, cm, 12/03/19 11:32:00 EST, Height, 70.4, [...] 01/12/21 12:29:00 EDT, Route to Pharmacy Electronically, [facility] #[id number], Partial fill upon patient request if the prescription is for a schedule II opio... Start Date: 01/12/21 Stop Date: 02/11/21 Status: Ordered naproxen 250 mg oral tablet 250 mg, 1, tablet, By Mouth, Every 8 hours, # 9 tablet, Refills 0, Tot. Refills 0, Maintenance, 11/23/21 9:40:00 EST, Route to Pharmacy Electronically, [facility] #[id number], Partial fill upon patient request if the prescription is for a schedul... Start Date: 11/23/21 Status: Ordered ProAir HFA 90 mcg/inh inhalation aerosol with adapter 2, puffs, Inhalation, Every 4 hours, PRN, # 8.5 Gm, Refills 1, Tot. Refills 1, Maintenance, 12/23/20 10:56:00 EDT, Aerosol, Route to Pharmacy Electronically, [id number], [facility] #[id number], 157, cm, 12/03/19 11:32:00... Start Date: 12/23/20 [...]
--- OUTSIDE RECORDS SUMMARY | 2023-04-28 03:20 | XMS_ITS | Continuity of Care Document ---
Author Name Unknown Organization [facility] Address [address] [place] [address]- Care Team Providers Care Cable Puller Name Role Phone Claudia REYES, Christ Castrejon Primary Care Physician [phone] Encounter [facility] Date(s): 12/07/21 - 01/06/22 [facility] [address] [place], [place] [address] Attending Physician: Not on Staff, Attending MD [...] PALMER Gaines 2Result Comment: [08/02/2016] Huma Drummond HOME CARE ASSISTANT 3Result Comment: [08/01/2015] Huma Drummond 4Result Comment: [...] capsule, 0 Refills, Maintenance, 07/21/2016:58:00 EDT, [facility]apsule[id number], 157, cm, 12/03/19 11:32:00 EST, Height, 70.4, [...] 01/12/21 12:29:00 EDT, Route to Pharmacy Electronically, [facility] #[id number], Partial fill upon patient request if the prescription is for a schedule II opio... Start Date: 01/12/21 Stop Date: 02/11/21 Status: Ordered naproxen 250 mg oral tablet 250 mg, 1, tablet, By Mouth, Every 8 hours, # 9 tablet, Refills 0, Tot. Refills 0, Maintenance, 11/23/21 9:40:00 EST, Route to Pharmacy Electronically, [facility] #[id number], Partial fill upon patient request if the prescription is for a schedul... Start Date: 11/23/21 Status: Ordered ProAir HFA 90 mcg/inh inhalation aerosol with adapter 2, puffs, Inhalation, Every 4 hours, PRN, # 8.5 Gm, Refills 1, Tot. Refills 1, Maintenance, 12/23/20 10:56:00 EDT, Aerosol, Route to Pharmacy Electronically, [id number], [facility] #[id number], 157, cm, 12/03/19 11:32:00... Start Date: 12/23/20 [...]
--- OUTSIDE RECORDS SUMMARY | 2023-04-28 03:20 | XMS_ITS | Continuity of Care Document ---
Author Name Unknown Organization [facility] Address [address] [place] [address]- Care Team Providers Care Foot Piece Assembler Name Role Phone Christ Taylor MD Primary Care Physician Encounter [facility] Date(s): 12/03/19 - 12/10/19 [facility] [address] [place] [address]- [facility] Attending Physician: Nilam Monge MD Referring Physician: Christ Taylor MD Allergies, Adverse Reactions, Alerts Substance Reaction [...] PALMER Gaines 2Result Comment: [08/02/2016] Huma Drummond PERFORMANCE IMPROVEMENT CONSULTANT 3Result Comment: [08/01/2015] Huma Drummond 4Result [...] capsule, 0 Refills, Maintenance, 11/26/2017:29:00 EST, Capsule, [facility] #[id number], 157, cm, 11/25/19 13:13:00 EST, Height, 70.8, kg, 11/25/19 13:13:00 EST, Dry Weight Start Date: 11/26/19 Stop Date: 12/26/19 Status: Ordered Effexor XR 150 mg oral capsule, extended release 150 mg, 1, capsule, By Mouth, Daily, # 30 capsule, Refills 2, Tot. Refills 2, Maintenance, 11/26/2016:38:00 EST, Route to Pharmacy Electronically, [facility] #[id number], 157, cm, 11/25/19 13:13:00 EST, Height, 70.8, kg, 11/25/19 13:13:00 EST, D... Start Date: 11/26/19 Stop Date: 02/24/20 Status: Ordered loratadine 10 mg oral tablet 10 mg, By Mouth, Daily, # 30 tablet, Refills 0, Tot. Refills 0, Maintenance, 11/09/19 16:52:00 EST,Route to Pharmacy Electronically, [facility] #[id number], 157, cm, 10/22/19 10:25:00 EST, Height, 71.5, kg, 10/22/19 10:25:00 EST, Dry Weight Start Date: 11/09/19 Status: Ordered ProAir HFA 90 mcg/inh inhalation aerosol with adapter 2, puffs, Inhalation, Every 4 hours, PRN, # 8.5 Gm, Refills 1, Tot. 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 Oppositional defiant disorder(Confirmed) Active PTSD - Post-traumatic stress disorder(Confirmed) Active Vital Signs Most recent to oldest [Reference Range]: 1 Height 157.0 cm (12/03/19 11:32 AM) Weight 70.4 kg (12/03/19 11:32 AM) Oxygen Saturation [94-100 %] 98 % (12/03/19 11:32 AM) Pulse Rate [55-90 bpm] 84 bpm (12/03/19 11:32 AM) Body Mass Index [18.5-24.99] 28.56 *H* (12/03/19 11:32 AM) Blood Pressure [90-138/55-84 mm Hg] 128/ 88mm Hg (12/03/19 11:32 AM) Mode of Delivery (Oxygen) Room air (12/03/19 11:32 AM) Blood pressure sites Arm, left (12/03/19 11:32 AM) Dry Weight 70.4 kg (12/03/19 11:32 AM) Social History Social History Type Response Smoking Status Never smoker entered on: 11/07/17 Sex Female
--- OUTSIDE RECORDS SUMMARY | 2023-04-28 03:20 | XMS_ITS | Continuity of Care Document ---
Author Name Unknown Organization [facility] Address [address] [place] [address]- Care Team Providers Care Brand Ambassador Name Role Phone Claudia REYES, Christ Castrejon Primary Care Physician Encounter [facility] Date(s): 09/05/21 - 09/05/[address] [address]- Discharge Disposition: A-D/C Walkout Attending Physician: Not on Staff, Attending MD Admitting Physician: Not on Staff, Admitting MD Referring Physician: Not on Staff, Referring MD Allergies, Adverse Reactions, Alerts Substance Reaction [...] 11 07/17/12 Given Human Papillomavirus Vaccine 12 4/22/13 Given Human Papillomavirus Vaccine 13 09/23/12 Given [...] PALMER Gaines 2Result Comment: [08/02/2016] Huma Drummond MANAGER OF SECURITY 3Result Comment: [08/01/2015] Huma Drummond 4Result Comment: [...] 0 Refills, Maintenance, 07/21/2016:58:00 EDT, Capsule, [facility] #[id number], 157, cm, 12/03/19 11:32:00 EST, Height, 70.4, [...] 01/12/21 12:29:00 EDT, Route to Pharmacy Electronically, [facility] #[id number], Partial fill upon patient request if the prescription is for a schedule II opio... Start Date: 01/12/21 Stop Date: 02/11/21 Status: Ordered ProAir HFA 90 mcg/inh inhalation aerosol with adapter 2, puffs, Inhalation, Every 4 hours, PRN, # 8.5 Gm, Refills 1, Tot. Refills 1, Maintenance, 12/23/20 10:56:00 EDT, Aerosol, Route to Pharmacy Electronically, [id number], [facility] #[id number], 157, cm, 12/03/19 11:32:00... 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 Oppositional defiant disorder(Confirmed) Active PTSD - Post-traumatic stress disorder(Confirmed) Active Vital Signs Most recent to oldest [Reference Range]: 1 Oxygen Saturation [94-100 %] 97 % (09/05/21 8:22 PM) Pulse Rate [55-90 bpm] 84 bpm (09/05/21 8:22 PM) Blood Pressure [90-138/55-84 mm Hg] 130/ 79mm Hg (09/05/21 8:22 PM) Respiratory Rate [16-30 br/min] 18 br/mi n (09/05/21 8:22 PM) Temperature [96.8-100.4 DegF] 98.2 DegF (09/05/21 8:22 PM) Mode of Delivery (Oxygen) Room air (09/05/21 8:22 PM) Blood pressure sites Arm, right (09/05/21 8:22 PM) Temperature Route Oral (09/05/21 8:22 PM) Social History Social History Type Response Smoking Status Never smoker entered on: 11/07/17 Sex Female
--- OUTSIDE RECORDS SUMMARY | 2023-04-28 03:20 | XMS_ITS | Continuity of Care Document ---
Author Name Unknown Organization [facility] Address [address] [place] [address]- Care Team Providers Care Metal Fabricator Helper Name Role Phone Claudia REYES, Christ Castrejon Primary Care Physician Encounter [facility] Date(s): 11/22/21 - 11/29/21 [facility] [address] [place], [place] [address] Attending Physician: Not on Staff, Attending MD [...] PALMER Gaines 2Result Comment: [08/02/2016] Huma Drummond METAPHYSICS TEACHER 3Result Comment: [08/01/2015] Huma Drummond 4Result Comment: [...] capsule, 0 Refills, Maintenance, 07/21/2016:58:00 EDT, [facility]apsule, [id number], 157, cm, 12/03/19 11:32:00 EST, Height, 70.4, [...] 01/12/21 12:29:00 EDT, Route to Pharmacy Electronically, [facility] #[id number], Partial fill upon patient request if the prescription is for a schedule II opio... Start Date: 01/12/21 Stop Date: 02/11/21 Status: Ordered naproxen 250 mg oral tablet 250 mg, 1, tablet, By Mouth, Every 8 hours, # 9 tablet, Refills 0, Tot. Refills 0, Maintenance, 11/23/21 9:40:00 EST, Route to Pharmacy Electronically, [facility] #[id number], Partial fill upon patient request if the prescription is for a schedul... Start Date: 11/23/21 Status: Ordered ProAir HFA 90 mcg/inh inhalation aerosol with adapter 2, puffs, Inhalation, Every 4 hours, PRN, # 8.5 Gm, Refills 1, Tot. Refills 1, Maintenance, 12/23/20 10:56:00 EDT, Aerosol, Route to Pharmacy Electronically, [id number], [facility] #[id number], 157, cm, 12/03/19 11:32:00... Start Date: 12/23/20 [...]
--- OUTSIDE RECORDS SUMMARY | 2023-04-28 03:20 | XMS_ITS | Continuity of Care Document ---
Author Name Unknown Organization [facility] Address [address] [place] [address]- Care Team Providers Care Assistant Professor Of Business Name Role Phone Shanti Bustillos NP Primary Care Physician Encounter [facility] Date(s): 08/29/22 - 09/05/22 [facility] [address], [place] [address] Attending Physician: Not on Staff, [...] PALMER Gaines 2Result Comment: [08/02/2016] Huma Drummond TRIMMER CLIMBER 3Result Comment: [08/01/2015] Huma Drummond 4Result Comment: [07/29/2014] ordered by Huma Drummond C.P.NLavonnePLavonne 5Result Comment: [07/23/2013] ordered by Huma Drummond [...] 02/07/22 13:47:00 EDT, Route to Pharmacy Electronically, [facility] #[id number], Partial fill upon patientrequest if the prescription [...] 6 Refills, Maintenance, 02/07/22 13:56:00 EDT, Aerosol, [facility] #[id number], Partial fill upon patient request if the prescription is for a schedule II opioid drug., 156.5, cm, 02/07/22 13:23:00 ED... Start Date: 02/07/22 Stop Date: 09/05/22 Status: Ordered naproxen 250 mg oral tablet 250 mg, 1, tablet, By Mouth, Every 8 hours, # 9 tablet, Refills 0, Tot. Refills 0, Maintenance, 11/23/21 9:40:00 EST, Route to Pharmacy Electronically, [facility] #[id number], Partial fill upon patient request if the prescription is for a schedul... Start Date: 11/23/21 Status: Ordered ProAir HFA 90 mcg/inh inhalation aerosol with adapter 2, puffs, Inhalation, Every 4 hours, PRN, # 8.5 Gm, Refills 1, Tot. Refills 1, Maintenance, 02/07/22 13:56:00 EDT, Aerosol, Route to Pharmacy Electronically, [id number], [facility] #[id number], 156.5, cm, 02/07/22 13:23:... Start Date: 02/07/22 Status: Ordered Problem List Condition Confirmation Course Effective Dates Status Health St atus Informant Acute pulmonary embolism Confirmed Active ADHD Confirmed Active Depressive disorder Confirmed Active Gender dysphoria in pediatric patient Confirmed Active Obese class I Confirmed Active Oppositional defiant disorder Confirmed Active PTSD - Post-traumatic stress disorder Confirmed Active Vital Signs Most recent to oldest [Reference Range]: 1 Weight 90.3 kg (08/29/22 10:52 AM) Pulse Rate [55-90 bpm] 85 bpm (08/29/22 10:52 AM) Blood Pressure [90-138/55-84 mm Hg] 122/ 80mm Hg (08/29/22 10:52 AM) Blood pressure sites Arm, left (08/29/22 10:52 AM) Dry Weight 90.3 kg (08/29/22 10:52 AM) Weight Obtained Via Standing scale (08/29/22 10:52 AM) Dry Weight Obtained Via Standing scale (08/29/22 10:52 AM) Social History Social History Type Response Smoking Status Never smoker entered on: 11/07/17 Sex Female Patient Care team information Care Team Personnel Name: Morgan REYES, Codi Castrejon Position: [facility] SIGNAL PROCESSING ENGINEER MD Member Role: Lifetime Consulting Physician Address: Address: [address] [place] [address], [address] [place] [address]- Name: Nena Angela NP Position: [facility] PCO Associate Professional Member Role: Lifetime Consulting Provider Address: Address: [address] [place] [address] Pediatric Services [place], [place] [address] Name: Claudia REYES, Christ Castrejon Position: [facility] General Pediatrics MD Member Role: Lifetime Consulting Physician Address: Address: [address] [place] [address] Name: Shanti Bustillos NP Position: [facility] PCO Associate Professional Member Role: PCP Address: Address: [address] [place] [address] Pedi Services [place], [place] [address] Care Team Related Persons Name: NAV MORALES Address: home [address] [place] [address] Name: NAV MORALES Address: home [address], [place] Name: NAV MORALES Address: home [address] [facility] [id number] Name: JOÃO MORALES Address: home [address] [place] [address]
--- OUTSIDE RECORDS SUMMARY | 2023-04-28 03:20 | XMS_ITS | Continuity of Care Document ---
Author Name Unknown Organization [facility] Address [address] [place] [address]- Care Team Providers Care Table Maker Name Role Phone Apollo REYES, Abdirahman Alfaro Primary Care Physician [facility]counter [facility] Date(s): 11/25/19 - 11/25/[address] [address]- [facility] Attending Physician: Huma Mcbride Allergies, Adverse Reactions, [...] PALMER Gaines 2Result Comment: [08/02/2016] Huma Drummond COST REDUCTION ENGINEER 3Result Comment: [08/01/2015] Huma Drummond 4Result Comment: [...] Maintenance, :38:43 EST, Route to Pharmacy Electronically, [id number], [facility] #[id number], 156, cm, 08/17/19 14:51:53 EST, Heigh... Start Date: 09/17/19 Stop Date: 12/16/19 Status: Ordered loratadine 10 mg oral tablet 10 mg, By Mouth, Daily, # 30 tablet, Refills 0, Tot. Refills 0, Maintenance, 11/09/19 16:52:00 EST,Route to Pharmacy Electronically, [facility] #[id number], 157, cm, 10/22/19 10:25:00 EST, Height, 71.5, kg, 10/22/19 10:25:00 EST, Dry Weight Start Date: 11/09/19 Status: Ordered ProAir HFA 90 mcg/inh inhalation aerosol with adapter 2, puffs, Inhalation, Every 4 hours, PRN, # 8.5 Gm, Refills 1, Tot. 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
--- OUTSIDE RECORDS SUMMARY | 2023-04-28 03:20 | XMS_ITS | Continuity of Care Document ---
Author Name Unknown Organization [facility] Address [address] [place] [address]- Care Team Providers Care Reel Cutter Name Role Phone Claudia REYES, Christ Castrejon Primary Care Physician Encounter [facility] Date(s): 04/13/20 - 05/13/20 [facility] [address] [place] [id number]- Allergies, Adverse Reactions, Alerts Substance Reaction Severity [...] PALMER Gaines 2Result Comment: [08/02/2016] Huma Drummond SHOVEL HANDLE ASSEMBLER 3Result Comment: [08/01/2015] Huma Drummond 4Result Comment: [07/29/2014] ordered by Huma Drummond C.P.NLavonneP. 5Result Comment: [07/23/2013] ordered by Huma Aiken, C.P.N.P. 6Admin Note: private vis given screening questions [...] ADHD., # 30 capsule, 0 Refills, Maintenance, 04/13/2018:43:00 EDT, Capsule, [facility] #[id number], 157, cm, 12/03/19 11:32:00 EST, Height, 70.4, kg, 12/03/19 11:32:00 EST, Dry Weight Start Date: 04/13/20 Stop Date: 05/13/20 Status: Ordered Effexor XR 150 mg oral capsule, extended release 150 mg, 1, capsule, By Mouth, Daily, # 30 capsule, Refills 2, Tot. Refills 2, Maintenance, 01/18/2016:57:00 EDT, Route to Pharmacy Electronically, [facility] #[id number], 157, cm, 12/03/19 11:32:00 EST, Height, 70.4, kg, 12/03/19 11:32:00 EST, D... Start Date: 01/18/20 Stop Date: 04/17/20 Status: Ordered loratadine 10 mg oral tablet 10 mg, By Mouth, Daily, # 90 tablet, Refills 0, Tot. Refills 0, Maintenance, 03/02/20 14:00:00 EDT,Route to Pharmacy Electronically, [facility] #[id number], 157, cm, 12/03/19 11:32:00 EST, Height, 70.4, kg, 12/03/19 11:32:00 EST, Dry Weight Start Date: 03/02/20 Status: Ordered ProAir HFA 90 mcg/inh inhalation aerosol with adapter 2, puffs, Inhalation, Every 4 hours, PRN, # 8.5 Gm, Refills 1, Tot. Refills 1, Maintenance, 12/23/19 14:57:00 EDT, Aerosol, Route to Pharmacy Electronically, [id number], [facility] #[id number], 157, cm, 12/03/19 11:32:00... Start Date: 12/23/19 [...]
--- OUTSIDE RECORDS SUMMARY | 2023-04-28 03:20 | XMS_ITS | Continuity of Care Document ---
Author Name Unknown Organization [facility] [address] [place] [address]- Care Team Providers Care Web Feeder Name Role Phone Shanti Bustillos NP Primary Care Physician Encounter [facility] Date(s): 10/31/22 - 11/07/22 [facility] [address] [place] [address]- Attending Physician: Not on Staff, Attending MD Allergies, Adverse Reactions, Alerts Substance Reaction Severity Status Dogs Active Dust Active Mold Active Pollen Active Immunizations Given and Recorded Vaccine Date Status Refusal Reason influenza virus vaccine, inactivated 07/28/22 Ad rded [...] virus vaccine, inactivated 7 05/31/10 Gi ludmila tetanus/diphtheria/pertussis, acel(Tdap) 02/07/22 Given [...] PALMER Gaines 2Result Comment: [08/02/2016] Huma Drummond NP 3Result Comment: [08/01/2015] Huma Drummond 4Result Comment: [...] 02/07/22 13:47:00 EDT, Route to Pharmacy Electronically, [facility] #[id number], Partial fill upon patientrequest if the prescription [...] 6 Refills, Maintenance, 02/07/22 13:56:00 EDT, Aerosol, [facility] #[id number], Partial fill upon patient request if the prescription is for a schedule II opioid drug., 156.5, cm, 02/07/22 13:23:00 ED... Start Date: 02/07/22 Stop Date: 09/05/22 Status: Ordered naproxen 250 mg oral tablet 250 mg, 1, tablet, By Mouth, Every 8 hours, # 9 tablet, Refills 0, Tot. Refills 0, Maintenance, 11/23/21 9:40:00 EST, Route to Pharmacy Electronically, [facility] #[id number], Partial fill upon patient request if the prescription is for a schedul... Start Date: 11/23/21 Status: Ordered ProAir HFA 90 mcg/inh inhalation aerosol with adapter 2, puffs, Inhalation, Every 4 hours, PRN, # 8.5 Gm, Refills 1, Tot. Refills 1, Maintenance, 02/07/22 13:56:00 EDT, Aerosol, Route to Pharmacy Electronically, [id number], [facility] #[id number], 156.5, cm, 02/07/22 13:23:... Start Date: 02/07/22 Status: Ordered Problem List Condition Confirmation Course Effective Dates Status Health St atus Informant Acute pulmonary embolism Confirmed Active ADHD Confirmed Active Depressive disorder Confirmed Active Gender dysphoria in pediatric patient Confirmed Active Oppositional defiant disorder Confirmed Active PTSD - Post-traumatic stress disorder Confirmed Active Severe obesity (BMI 35.0-39.9) with comorbidity Confirmed Active Vital Signs Most recent to oldest [Reference Range]: 1 Pulse Rate [55-90 bpm] 76 bpm (10/31/22 1:52 PM) Blood Pressure [90-138/55-84 mm Hg] 136/ 72mm Hg (10/31/22 1:52 PM) Temperature [96.8-100.4 DegF] 97.5 DegF (10/31/22 1:52 PM) Blood pressure sites Arm, left (10/31/22 1:52 PM) Temperature Route Temporal (10/31/22 1:52 PM) Social History Social History Type Response Smoking Status 5-9 cigarettes (betw een 1/4 to 1/2 pack)/day in last 30 days; Interested in cessation: No; Patient wants NRT during admission Yes; Type: Cigarettes entered on: 11/07/22 Sex Female Patient Care team information Care Team Personnel Name: Morgan REYES, Codi Castrejon Position: [facility] FINANCIAL SALES PROFESSIONAL MD Member Role: Lifetime Consulting Physician Address: Address: [address] [place] [address], [facility]D [facility] [address] Name: Nena Angela NP Position: [facility] PCO Associate Professional Member Role: Lifetime Consulting Provider Address: Address: [address] [place] [address] Pediatric Services [place], [place] [address] Name: Claudia REYES, Christ Castrejon Position: [facility] General Pediatrics MD Member Role: Lifetime Consulting Physician Address: Address: [address] [place] [address] Pediatric Services [place], [place] [address] Name: Shanti Bustillos NP Position: [facility] PCO Associate Professional Member Role: PCP Address: Address: [address] [place] [address] [place] [address]- Care Team Related Persons Name: NAV MORALES Address: home [address] [place] [address] Name: NAV MORALES Address: home [address] [place] [address] Name: NAV MORALES Address: home [address] [id number] Name: JOÃO MORALES Address: home [address] [place] [address]
--- OUTSIDE RECORDS SUMMARY | 2023-04-28 03:20 | XMS_ITS | Continuity of Care Document ---
Author Name Unknown Organization [facility] Address [address] [place] [address]- Care Team Providers Care 7Th Grade Social Studies Teacher Name Role Phone Abdirahman Bustillos MD Primary Care Physician [phone] Encounter [facility] Date(s): 10/22/19 - 10/29/19 [facility] [address] [place] [address]- [facility] Attending Physician: Mary Echeverria DO Referring Physician: Abdirahman Bustillos MD Allergies, Adverse [...] PALMER Gaines 2Result Comment: [08/02/2016] Huma Drummond MOSS PICKER 3Result Comment: [08/01/2015] Huma Drummond 4Result Comment: [...] Maintenance, :38:43 EST, Route to Pharmacy Electronically, [id number], [facility] #[id number], 156, cm, 08/17/19 14:51:53 EST, Heigh... Start Date: 09/17/19 Stop Date: 12/16/19 Status: Ordered loratadine 10 mg oral tablet 10 mg, By Mouth, Daily, # 30 tablet, Refills 0, Tot. Refills 0, Maintenance, 09/11/19 17:16:02 EST,Route to Pharmacy Electronically, [id number], [facility] #[id number], 156, cm, 08/17/19 14:51:53 EST, Height, 73.4, [...] 03/31/19 12:40:47 EDT, Route to Pharmacy Electronically, [id number], [facility] [id number] Start Date: 03/31/19 Status: Ordered ProAir HFA 90 mcg/inh inhalation aerosol with adapter 2, puffs, Inhalation, Every 4 hours, PRN, # 8.5 Gm, Refills 1, Tot. Refills 1, Maintenance, 06/10/19 14:42:48 EDT, Aerosol, Route to Pharmacy Electronically, [id number], [facility] #[id number] Start Date: 06/10/19 Status: Ordered rivaroxaban 10 [...] oldest [Reference Range]: 1 Height 157.0 cm (10/22/19 10:25 AM) Weight 71.5 kg (10/22/19 10:25 AM) Pulse Rate [55-90 bpm] 107 bpm *H* (10/22/19 10:25 AM) Body Mass Index [18.5-24.99] 29.01 *H* (10/22/19 10:25 AM) Blood Pressure [71-110/30-71 mm Hg] 133/ 74mm Hg *H* (10/22/19 10:25 AM) Dry Weight 71.5 kg (10/22/19 10:25 AM) Social History Social History Type Response Smoking Status Never smoker entered on: 11/07/17 Sex Female
--- OUTSIDE RECORDS SUMMARY | 2023-04-28 03:20 | XMS_ITS | Continuity of Care Document ---
Author Name Unknown Organization [facility] Address [address] [place] [address]- Care Team Providers Care Senior Marketing Coordinator Name Role Phone Claudia ERYES, Christ Castrejon Primary Care Physician [facility]counter [facility] Date(s): 10/16/19 - 12/20/[address] [address]- [facility] Discharge Disposition: A-D/C Home Attending Physician: Rodrigo Rodney MD Admitting Physician: Rodrigo Rodney MD Referring Physician: Abdirahman Bustillos MD Allergies, [...] PALMER Gaines 2Result Comment: [08/02/2016] Huma Drummond RING SORTER 3Result Comment: [08/01/2015] Huma Drummond 4Result Comment: [...] capsule, 0 Refills, Maintenance, 11/26/2017:29:00 EST, Capsule, [facility] #[id number], 157, cm, 11/25/19 13:13:00 EST, Height, 70.8, kg, 11/25/19 13:13:00 EST, Dry Weight Start Date: 11/26/19 Stop Date: 12/26/19 Status: Ordered Effexor XR 150 mg oral capsule, extended release 150 mg, 1, capsule, By Mouth, Daily, # 30 capsule, Refills 2, Tot. Refills 2, Maintenance, 11/26/2016:38:00 EST, Route to Pharmacy Electronically, [facility] #[id number], 157, cm, 11/25/19 13:13:00 EST, Height, 70.8, kg, 11/25/19 13:13:00 EST, D... Start Date: 11/26/19 Stop Date: 02/24/20 Status: Ordered loratadine 10 mg oral tablet 10 mg, By Mouth, Daily, # 30 tablet, Refills 0, Tot. Refills 0, Maintenance, 11/09/19 16:52:00 EST,Route to Pharmacy Electronically, [facility] #[id number], 157, cm, 10/22/19 10:25:00 EST, Height, 71.5, kg, 10/22/19 10:25:00 EST, Dry Weight Start Date: 11/09/19 Status: Ordered ProAir HFA 90 mcg/inh inhalation aerosol with adapter 2, puffs, Inhalation, Every 4 hours, PRN, # 8.5 Gm, Refills 1, Tot. Refills 1, Maintenance, 06/10/19 14:42:48 EDT, Aerosol, Route to Pharmacy Electronically, [id number], [facility] #[id number] Start Date: 06/10/19 Status: Ordered Problem List Condition Effective Dates Status Health Status Inform ant Acute pulmonary embolism(Confirmed) Active ADHD(Confirmed) Active Depressive disorder(Confirmed) Active 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 Oppositional defiant disorder(Confirmed) Active PTSD - Post-traumatic stress disorder(Confirmed) Active Vital Signs Most recent to oldest [Reference Range]: 1 Height 157 cm (10/20/19 3:01 PM) Weight 70.2 kg (10/20/19 3:01 PM) Pulse Rate [55-90 bpm] 93 bpm *H* (10/20/19 3:01 PM) Body Mass Index [18.5-24.99] 28.48 *H* (10/20/19 3:01 PM) Blood Pressure [71-110/30-71 mm Hg] 136/ 88mm Hg *H* (10/20/19 3:01 PM) Blood pressure sites Arm, left (10/20/19 3:01 PM) Dry Weight 70.2 kg (10/20/19 3:01 PM) Social History Social History Type Response Smoking Status Never smoker entered on: 11/07/17 Sex Female
--- OUTSIDE RECORDS SUMMARY | 2023-04-28 03:20 | XMS_ITS | Continuity of Care Document ---
Author Name Unknown Organization [facility] Address [address] [place] [address]- Care Team Providers Care Swimming Pool Plasterer Helper Name Role Phone Claudia REYES, Christ Castrejon Primary Care Physician Encounter [facility] Date(s): 03/02/22 - 03/02/[address] [address]- Encounter Diagnosis Alcohol intoxication(Final) - 03/02/22 Discharge Disposition: A-D/C Home Attending Physician: Emily Strickland MD Admitting Physician: Emily Strickland MD Referring Physician: Not on Staff, Referring [...] PALMER Gaines 2Result Comment: [08/02/2016] Huma Drummond BAND TUMBLER 3Result Comment: [08/01/2015] Huma Drummond 4Result Comment: [...] 02/07/22 13:47:00 EDT, Route to Pharmacy Electronically, [facility] #[id number], Partial fill upon patientrequest if the prescription [...] 6 Refills, Maintenance, 02/07/22 13:56:00 EDT, Aerosol, [facility] #[id number], Partial fill upon patient request if the prescription is for a schedule II opioid drug., 156.5, cm, 02/07/22 13:23:00 ED... Start Date: 02/07/22 Stop Date: 09/05/22 Status: Ordered naproxen 250 mg oral tablet 250 mg, 1, tablet, By Mouth, Every 8 hours, # 9 tablet, Refills 0, Tot. Refills 0, Maintenance, 11/23/21 9:40:00 EST, Route to Pharmacy Electronically, [facility] #[id number], Partial fill upon patient request if the prescription is for a schedul... Start Date: 11/23/21 Status: Ordered ProAir HFA 90 mcg/inh inhalation aerosol with adapter 2, puffs, Inhalation, Every 4 hours, PRN, # 8.5 Gm, Refills 1, Tot. Refills 1, Maintenance, 02/07/22 13:56:00 EDT, Aerosol, Route to Pharmacy Electronically, [id number], [facility] #[id number], 156.5, cm, 02/07/22 13:23:... 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 FINDINGS: LINES AND TUBES: None. LUNGS AND PLEURA: There are low lung volumes with perihilar interstitial opacities bilaterally. Distinct appearance of the pulmonary vasculature. No pleural effusion. No pneumothorax. HEART, MEDIASTINUM AND ATIYA: Heart is normal in size. Normal upper mediastinal and hilar contour. BONES AND SOFT TISSUES: No acute abnormality. IMPRESSION: Low lung volumes with perihilar interstitial opacities and indistinct appearance of the pulmonary vasculature. This may reflect interstitial edema through the low lung volumes may exaggerate this finding. WSN: [id number] Ordering Physician: Neema Irving Dictated By: Perla Braun MD Dictated Date/Time: 03/02/22 7:53 am Reviewed By: Perla Braun MD Signed By: Perla Braun MD Signed Date/Time: 03/02/22 7:53 am Transcribed By: DENNY Transcribed Date/Time: 03/02/22 7:51 am Vital Signs Most recent to oldest [Reference Range]: 1 2 3 Oxygen Saturation [94-100 %] 97 % (03/02/22 10:47 AM) 100 % (03/02/22 9:09 AM) 97 % (03/02/22 8:21 AM) Pulse Rate [55-90 bpm] 64 bpm (03/02/22 10:47 AM) 79 bpm (03/02/22 9:09 AM) 74 bpm (03/02/22 8:21 AM) Blood Pressure [90-138/55-84 mm Hg] 138/94mm Hg (03/02/22 10:47 AM) 108/66mm Hg (03/02/22 9:09 AM) 105/61mm Hg (03/02/22 8:21 AM) Respiratory Rate [16-30 br/min] 21 br/min (03/02/22 10:47 AM) 13 br/min *L* (03/02/22 9:09 AM) 15 br/min *L* (03/02/22 8:21 AM) Temperature [96.8-100.4 DegF] 97.9 DegF (03/02/22 12:54 AM) Liters per Minute 2 L/min (03/02/22 8:21 AM) 2 L/min (03/02/22 7:25 AM) 2 L/min (03/02/22 6:30 AM) Mode of Delivery (Oxygen) Room air (03/02/22 10:47 AM) Room air (03/02/22 9:09 AM) Nasal cannula (03/02/22 8:21 AM) Temperature Route Oral (03/02/22 12:54 AM) Social History Social History Type Response Smoking Status Never smoker entered on: 11/07/17 Sex Female
--- OUTSIDE RECORDS SUMMARY | 2023-04-28 03:21 | XMS_ITS | Continuity of Care Document ---
Author Name Unknown Organization [facility] Address [address] [place] [address]- Care Team Providers Care Parts Salesperson Name Role Phone Claudia REYES, Christ Castrejon Primary Care Physician [phone] Encounter [facility] Date(s): 11/25/19 - 12/02/19 [facility] [address] [place] [address] Attending Physician: Huma Mcbride Allergies, Adverse [...] PALMER Gaines 2Result Comment: [08/02/2016] Huma Drummond FLORAL ARRANGER 3Result Comment: [08/01/2015] Huma Drummond 4Result Comment: [...] capsule, 0 Refills, Maintenance, 11/26/2017:29:00 EST, Capsule, [facility] #[id number], 157, cm, 11/25/19 13:13:00 EST, Height, 70.8, kg, 11/25/19 13:13:00 EST, Dry Weight Start Date: 11/26/19 Stop Date: 12/26/19 Status: Ordered Effexor XR 150 mg oral capsule, extended release 150 mg, 1, capsule, By Mouth, Daily, # 30 capsule, Refills 2, Tot. Refills 2, Maintenance, 11/26/2016:38:00 EST, Route to Pharmacy Electronically, [facility] #[id number], 157, cm, 11/25/19 13:13:00 EST, Height, 70.8, kg, 11/25/19 13:13:00 EST, D... Start Date: 11/26/19 Stop Date: 02/24/20 Status: Ordered loratadine 10 mg oral tablet 10 mg, By Mouth, Daily, # 30 tablet, Refills 0, Tot. Refills 0, Maintenance, 11/09/19 16:52:00 EST,Route to Pharmacy Electronically, [facility] #[id number], 157, cm, 10/22/19 10:25:00 EST, Height, 71.5, kg, 10/22/19 10:25:00 EST, Dry Weight Start Date: 11/09/19 Status: Ordered ProAir HFA 90 mcg/inh inhalation aerosol with adapter 2, puffs, Inhalation, Every 4 hours, PRN, # 8.5 Gm, Refills 1, Tot. 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 Oppositional defiant disorder(Confirmed) Active PTSD - Post-traumatic stress disorder(Confirmed) Active Vital Signs Most recent to oldest [Reference Range]: 1 Height 157 cm (11/25/19 1:13 PM) Weight 70.8 kg (11/25/19 1:13 PM) Pulse Rate [55-90 bpm] 86 bpm (11/25/19 1:13 PM) Body Mass Index [18.5-24.99] 28.72 *H* (11/25/19 1:13 PM) Blood Pressure [71-110/30-71 mm Hg] 118/ 80mm Hg *H* (11/25/19 1:13 PM) Blood pressure sites Arm, left (11/25/19 1:13 PM) Dry Weight 70.8 kg (11/25/19 1:13 PM) Weight Obtained Via Standing scale (11/25/19 1:13 PM) Dry Weight Obtained Via Standing scale (11/25/19 1:13 PM) Social History Social History Type Response Smoking Status Never smoker entered on: 11/07/17 Sex Female
--- OUTSIDE RECORDS SUMMARY | 2023-04-28 03:21 | XMS_ITS | Continuity of Care Document ---
Author Name Unknown Organization [facility] ter Address [address] [place] [id number]- Care Team Providers Care Export Freight Clerk Name Role Phone Shanti Bustillos NP Primary Care Physician Encounter [facility] Date(s): 08/24/22 - 08/24/[address] [address]- Encounter Diagnosis SVT (supraventricular tachycardia)(Final) - 08/24/22 Discharge Disposition: A-D/C Home Attending Physician: Bobbi Koo DO Admitting Physician: Bobbi Koo DO Referring Physician: Not on Staff, Referring MD [...] PALMER Gaines 2Result Comment: [08/02/2016] Huma Drummond MESSENGER OFFICE 3Result Comment: [08/01/2015] Huma Drummond 4Result Comment: [...] 02/07/22 13:47:00 EDT, Route to Pharmacy Electronically, [facility] #[id number], Partial fill upon patientrequest if the prescription [...] 6 Refills, Maintenance, 02/07/22 13:56:00 EDT, Aerosol, [facility] #[id number], Partial fill upon patient request if the prescription is for a schedule II opioid drug., 156.5, cm, 02/07/22 13:23:00 ED... Start Date: 02/07/22 Stop Date: 09/05/22 Status: Ordered naproxen 250 mg oral tablet 250 mg, 1, tablet, By Mouth, Every 8 hours, # 9 tablet, Refills 0, Tot. Refills 0, Maintenance, 11/23/21 9:40:00 EST, Route to Pharmacy Electronically, [facility] #[id number], Partial fill upon patient request if the prescription is for a schedul... Start Date: 11/23/21 Status: Ordered ProAir HFA 90 mcg/inh inhalation aerosol with adapter 2, puffs, Inhalation, Every 4 hours, PRN, # 8.5 Gm, Refills 1, Tot. Refills 1, Maintenance, 02/07/22 13:56:00 EDT, Aerosol, Route to Pharmacy Electronically, [id number], [facility] #[id number], 156.5, cm, 02/07/22 13:23:... Start Date: 02/07/22 Status: Ordered Problem List Condition Confirmation Course Effective Dates Status Health St atus Informant Acute pulmonary embolism Confirmed Active ADHD Confirmed Active Depressive disorder Confirmed Active Gender dysphoria in pediatric patient Confirmed Active Obese class I Confirmed Active Oppositional defiant disorder Confirmed Active PTSD - Post-traumatic stress disorder Confirmed Active Results Radiology Reports * Exam Date Time Procedure Performing Provider Status 08/24/22 6:22 PM Chest 2 Views Frontal and Lat Mat Thomas; Auth (Verified) Notes: (Chest 2 Views Frontal and Lat) Reason For Exam: Shortness of Breath RESULT: Chest 2 Views Frontal and Lat Chest 2 Views Frontal and Lat Hx of Present Illness: at work-tried to have bowel movement started feeling palpitations lightheaded w cp. per ems HR was in 200s. given adenosine. denies sob cp palpitations upon getting to ER. pt reports feeling anxious about situation.; Reason: Shortness of Breath; Clinical Question(s): CHF COMPARISON: 03/15/2022 FINDINGS: LINES AND TUBES: None. LUNGS AND PLEURA: Clear lungs. Normal pulmonary vascularity. No pleural effusion. No pneumothorax. HEART, MEDIASTINUM AND ATIYA: Heart is normal in size. Normal mediastinal and hilar contour. BONES AND SOFT TISSUES: No acute abnormality. IMPRESSION: No acute abnormality. WSN: [id number] Ordering Physician: Noa Mata Dictated By: Chris Caban MD Dictated Date/Time: 08/24/22 6:22 pm Reviewed By: Chris Caban MD Signed By: Chris Caban MD Signed Date/Time: 08/24/22 6:22 pm Transcribed By: DENNY Transcribed Date/Time: 08/24/22 6:22 pm Vital Signs Most recent to oldest [Reference Range]: 1 2 3 Oxygen Saturation [94-100 %] 98 % (08/24/22 10:00 PM) 100 % (08/24/22 7:52 PM) 100 % (08/24/22 6:29 PM) Pulse Rate [55-90 bpm] 88 bpm (08/24/22 10:00 PM) 90 bpm (08/24/22 7:52 PM) 101 bpm *H* (08/24/22 6:29 PM) Blood Pressure [90-138/55-84 mm Hg] 125/71mm Hg (08/24/22 10:00 PM) 133/61mm Hg (08/24/22 7:52 PM) 140/77mm Hg *H* (08/24/22 6:29 PM) Respiratory Rate [16-30 br/min] 12 br/min *L* (08/24/22 10:00 PM) 12 br/min *L* (08/24/22 7:52 PM) 22 br/min (08/24/22 6:29 PM) Temperature [96.8-100.4 DegF] 98.6 DegF (08/24/22 10:00 PM) 98.0 DegF (08/24/22 5:09 PM) Mode of Delivery (Oxygen) Room air (08/24/22 10:00 PM) Room air (08/24/22 7:52 PM) Room air (08/24/22 6:29 PM) Blood pressure sites Arm, right (08/24/22 7:52 PM) Arm, left (08/24/22 6:29 PM) Arm, left (08/24/22 5:09 PM) Temperature Route Oral (08/24/22 10:00 PM) Oral (08/24/22 5:09 PM) Social History Social History Type Response Smoking Status Never smoker entered on: 11/07/17 Sex Female Note * Noa Mata DO: PERFORM Event Display: Patient Education Leaflets Authored Date: Supraventricular Tachycardia: Types ?? Supraventricular Tachycardia: Types - Video Tachycardia is when the heart beats too fast. Find out what symptoms it causes, how it???s diagnosed, and what treatments can help manage it. To view the video go to this web address: [email or web address] Or, scan this QR code with your smart phone Last Reviewed Date: 2019 ?? [id number] The [employer]. All rights reserved. This information is not intended as a substitute for professional medical care. Always follow your healthcare professional's instructions. ?? * DONTAE Farah S: TRANSCRIBE Arsh REYES, Chris Harper: VERIFY Event Display: Result: Authored Date: Chest 2 Views Frontal and Lat Hx of Present Illness: at work-tried to have bowel movement started feeling palpitations lightheaded w cp. per ems HR was in 200s. given adenosine. denies sob cp palpitations upon getting to ER. pt reports feeling anxious about situation.; Reason: Shortness of Breath; Clinical Question(s): CHF COMPARISON: 03/15/2022 FINDINGS: LINES AND TUBES: None. LUNGS AND PLEURA: Clear lungs. Normal pulmonary vascularity. No pleural effusion. No pneumothorax. HEART, MEDIASTINUM AND ATIYA: Heart is normal in size. Normal mediastinal and hilar contour. BONES AND SOFT TISSUES: No acute abnormality. IMPRESSION: No acute abnormality. WSN: [id number] Ordering Physician: Noa Mata Dictated By: Chris Caban MD Dictated Date/Time: 08/24/22 6:22 pm Reviewed By: Chris Caban MD Signed By: Chris Caban MD Signed Date/Time: 08/24/22 6:22 pm Transcribed By: DENNY Transcribed Date/Time: 08/24/22 6:22 pm Patient Care team information Care Team Personnel Name: Codi Mora MD Position: [facility] FIRE INFORMATION OFFICER MD Member Role: Lifetime Consulting Physician Address: Address: [address] [place] [address], [address] [facility] [address] Name: Nena Angela NP Position: [facility] PCO Associate Professional Member Role: Lifetime Consulting Provider Address: Address: [address] [place] [address] [address] Services [address] Name: Christ Taylor MD Position: [facility] General Pediatrics MD Member Role: Lifetime Consulting Physician Address: Address: [address] [place] [address] Pediatric Services [address] Name: Shanti Bustillos NP Position: [facility] PCO Associate Professional Member Role: PCP Address: Address: [address] [place] [address] Name: Noa Mata DO Position: [facility] Resident Member Role: ED Resident Address: Address: [address] [place] [address] Emergency Medicine [address] Name: Hannah Khan Position: [facility] ED TA [facility] Name: Cecile Romano Position: [facility] ED RN W/OE and Tasks Member Role: Patient Care Provider Name: Bobbi Koo DO Position: [facility] ED Medicine MD Member Role: Admitting Physician Address: Address: [address] [place] [address]- [place] Care Team Related Persons Name: NAV MORALES Address: home [address] [place] [id number] Name: NAV MORALES Address: home [address] [place] [address] Name: NAV MORALES Address: home [address] [place], [place] [id number] Name: JOÃO MORALES Address: home [address] [place], [place] [id number]
--- OUTSIDE RECORDS SUMMARY | 2023-04-28 03:21 | XMS_ITS | Continuity of Care Document ---
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 Start Date: 02/07/22 Stop Date: 09/05/22 Status: Ordered naproxen 250 mg oral tablet 250 mg, 1, tablet, By Mouth, Every 8 hours, # 9 tablet, Refills 0, Tot. Refills 0, Maintenance, 11/23/21 9:40:00 EST, Route to Pharmacy Electronically, [facility] #[id number], Partial fill upon patient request if the prescription is for a schedul... Start Date: 11/23/21 Status: Ordered ProAir HFA 90 mcg/inh inhalation aerosol with adapter 2, puffs, Inhalation, Every 4 hours, PRN, # 8.5 Gm, Refills 1, Tot. Refills 1, Maintenance, 02/07/22 13:56:00 EDT, Aerosol, Route to Pharmacy Electronically, [id number], [facility] #[id number], 156.5, cm, 02/07/22 13:23:... Start Date: 02/07/22 [...] Most recent to oldest [Reference Range]: 1 Blood Pressure [90-138/55-84 mm Hg] 106/ 70mm Hg (10/25/22 8:25 AM) Blood pressure sites Arm, left (10/25/22 8:25 AM) Social History Social History Type Response Smoking Status Never smoker entered on: 11/07/17 Sex Female Patient Care team information Care Team Personnel Name: Morgan REYES, Codi Castrejon Position: [facility] BUSINESS DEVELOPMENT EXECUTIVE MD Member Role: Lifetime Consulting Physician Address: Address: [address] [place] [address], [address] [place] [address]- Name: Nena Angela NP Position: [facility] PCO Associate Professional Member Role: Lifetime Consulting Provider Address: Address: [address] [place] [address] [address] Services [address] Name: Claudia REYES, Christ Castrejon Position: [facility] General Pediatrics MD Member Role: Lifetime Consulting Physician Address: Address: [address] [place] [address] [address] Services [address] Name: Shanti Bustillos NP Position: [facility] PCO Associate Professional Member Role: PCP Address: Address: [address] [place] [address] [place] [address]- Care Team Related Persons Name: NAV MORALES Address: home [address] [place] [address] Name: NAV MORALES Address: home [address] [place] [address] Name: NAV MORALES Address: home [address] [place] [id number] Name: JOÃO MORALES Address: home [address] [place] [address]
--- OUTSIDE RECORDS SUMMARY | 2023-04-28 03:21 | XMS_ITS | Continuity of Care Document ---
Author Name Unknown Organization [facility] Address [address] [place] [address]- Care Team Providers Care Master Ocean Name Role Phone Claudia REYES, Christ Castrejon Primary Care Physician Encounter [facility] Date(s): 02/07/22 - 02/14/22 [facility] [address], [place] [address] Attending Physician: Huma Mcbride Allergies, [...] 08/01/15 Gi ludmila influenza virus vaccine, inactivated 07/29/14 Gi ludmila influenza virus vaccine, inactivated [...] 02/07/22 13:47:00 EDT, Route to Pharmacy Electronically, [facility] #[id number], Partial fill upon patientrequest if the prescription [...] 6 Refills, Maintenance, 02/07/22 13:56:00 EDT, Aerosol, [facility] #[id number], Partial fill upon patient request if the prescription is for a schedule II opioid drug., 156.5, cm, 02/07/22 13:23:00 ED... Start Date: 02/07/22 Stop Date: 09/05/22 Status: Ordered naproxen 250 mg oral tablet 250 mg, 1, tablet, By Mouth, Every 8 hours, # 9 tablet, Refills 0, Tot. Refills 0, Maintenance, 11/23/21 9:40:00 EST, Route to Pharmacy Electronically, [facility] #[id number], Partial fill upon patient request if the prescription is for a schedul... Start Date: 11/23/21 Status: Ordered ProAir HFA 90 mcg/inh inhalation aerosol with adapter 2, puffs, Inhalation, Every 4 hours, PRN, # 8.5 Gm, Refills 1, Tot. Refills 1, Maintenance, 02/07/22 13:56:00 EDT, Aerosol, Route to Pharmacy Electronically, [id number], [facility] #[id number], 156.5, cm, 02/07/22 13:23:... 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 Obese class I(Confirmed) Active Oppositional defiant disorder(Confirmed) Active PTSD - Post-traumatic stress disorder(Confirmed) Active Vital Signs Most recent to oldest [Reference Range]: 1 Height 156.5 cm (02/07/22 1:23 PM) Weight 80.1 kg (02/07/22 1:23 PM) Pulse Rate [55-90 bpm] 79 bpm (02/07/22 1:23 PM) Body Mass Index [18.5-24.99] 32.7 *>HHI* (02/07/22 1:23 PM) Blood Pressure [90-138/55-84 mm Hg] 120/ 62mm Hg (02/07/22 1:23 PM) Blood pressure sites Arm, left (02/07/22 1:23 PM) Dry Weight 80.1 kg (02/07/22 1:23 PM) Weight Obtained Via Standing scale (02/07/22 1:23 PM) Dry Weight Obtained Via Pediatric scale (02/07/22 1:23 PM) Social History Social History Type Response Smoking Status Never smoker entered on: 11/07/17 Sex Female
--- NOTE | 2023-04-28 03:53 | PC.NURSE ---
Pt awake and alert, upset that he was woken up from sleep by PD, Pt reports some alcohol use tonight, refusing care, wanting to leave AMA. Denies SI/HI.
== END 2023-04-28 03:56 | disposition left against medical advice (07) ==
PROVIDERS: Emergency Provider Internal Medicine
DX: F99 Mental disorder, not otherwise specified (principal); R40.4 Transient alteration of awareness
CPT/HCPCS: 99282